=== PATIENT | female | born 1945 | race Caucasian/White ===

== ENCOUNTER 2018-04-02 15:45 | Inpatient (IN) | payer MEDICARE, BC ==
[~2018-04-02] VITALS: Ht 165.1 cm; Wt 123.8 kg
[2018-04-02 15:48] VITALS: BP 144/88
[2018-04-02] MEDS ORDERED: ADVAIR 500-501 EACH INH (16:00)
[2018-04-02] MEDS ORDERED: CYCLOBENZAPRINE5 MG PO (16:01)
[2018-04-02] MEDS ORDERED: DICLOFENAC SODI75 MG PO (16:01)
[2018-04-02] MEDS ORDERED: COMBIVENT INH (16:01)
[2018-04-02] MEDS ORDERED: CYMBALTA60 MG PO (16:02)
[2018-04-02] MEDS ORDERED: PRINIVIL10 MG PO (16:02)
[2018-04-02] MEDS ORDERED: IRON325 PO (16:02)
[2018-04-02] MEDS ORDERED: MAGOX 400400 MG PO (16:03)
[2018-04-02] MEDS ORDERED: TOPROL XL25 MG PO (16:03)
[2018-04-02] MEDS ORDERED: UNICOMPLEX M TA1 TA1 PO (16:03)
[2018-04-02] MEDS ORDERED: KLOR-CON 1010 MEQ PO (16:04)
[2018-04-02] MEDS ORDERED: OMEPRAZOLE40 MG PO (16:04)
[2018-04-02 16:05] LABS: ABSOLUTE BASOPHILS 0.1 thou/uL (0.0-0.2); ABSOLUTE EOSINOPHILS 0.5 thou/uL (0.0-0.7); ABSOLUTE LYMPHOCYTES 1.7 thou/uL (0.8-5.3); ABSOLUTE MONOCYTES 0.9 thou/uL (0.0-1.2); BASOPHILS 0.9 %; EOSINOPHILS 4.5 %; HEMATOCRIT 35.3 % (37.0-47.0); HEMOGLOBIN 11.5 gm/dL (12.0-15.0); MCH 28.6 pg (26.0-34.0); MCHC 32.6 g/dL (28.0-37.0); MCV 87.7 fL (80.0-100.0); MONOCYTES 8.1 %; MPV 9.7 fl. (7.2-11.1); NUCLEATED RBCS 0 /100WBC; PLATELET COUNT* 308 thou/uL (150-400); POLYS 71.5 %; RBC 4.02 mil/uL (4.20-5.00); RDW-CV 13.8 % (10.5-14.5); WBC 11.2 thou/uL (4.0-11.0)
[2018-04-02] MEDS ORDERED: VITAMIN D3400 UNIT PO (16:05)
[2018-04-02] MEDS ORDERED: B12INJ PO (16:05)
[2018-04-02 16:13] LABS: INR 1.1; PROTIME 10.3 Seconds (9.20-11.50)
[2018-04-02 16:14] LABS: ANION GAP 7 mmol/L (7-16); BUN 19 mg/dL (7-18); CALCIUM 8.8 mg/dL (8.5-10.1); CHLORIDE 105 mmol/L (98-107); CO2 28 mmol/L (21-32); CREATININE 0.9 mg/dL (0.6-1.3); GLUCOSE 95 mg/dL (70-99); POTASSIUM 4.3 mmol/L (3.5-5.1); SODIUM 140 mmol/L (136-145)
[2018-04-02 16:24] LABS: ALBUMIN 3.4 g/dL (3.4-5.0); ALKALINE PHOSPHATASE 50 U/L (46-116); LIPASE 130 U/L (73-393); MAGNESIUM 1.6 mg/dL (1.8-2.4); NT-PRO BRAIN NAT PEPTIDE 4224 pg/mL (<300); SGOT 12 U/L (15-37); SGPT 19 U/L (30-65); TOTAL BILIRUBIN 0.3 mg/dL (<0.1-1.0); TOTAL PROTEIN 7.9 g/dL (6.4-8.2); TROPONIN-I LEVEL <0.06 ng/mL (<0.06)
[2018-04-02 17:06] VITALS: BP 134/69
[2018-04-02 17:15] VITALS: BP 115/72
--- NOTE | 2018-04-02 18:43 | NUR ---
ASSUMED CARE OF PATIENT AT 1715 AFTER TRANSFER TO ROOM 202 FROM EMERGENCY DEPARTMENT. PATIENT AWAKE, ALERT, AND ORIENTED APPROPRIATELY. ADMISSION ASSESSMENT AND DOCUMENTATION COMPLETED AND CHARTED. VITAL SIGNS STABLE. OXYGEN SATURATION WITHIN NORMAL LIMITS ON 2 LPM PER NASAL CANULA. CARDIZEM DRIP INFUSING, TITRATED TO 20 MG/HR PER ORDER FROM DR. RENNER. PATIENT'S HEART RATE IN 120S AT THIS TIME. PATIENT IS UP WITH STANDBY ASSISTANCE. USES CALL LIGHT APPROPRIATELY. DENIES NEEDS AT THIS TIME. CALL LIGHT WITHIN REACH. NURSING WILL CONTINUE TO MONITOR.
[2018-04-02 20:00] VITALS: BP 154/80
[2018-04-03] VITALS (8 sets, daily range): BP systolic 122–182; BP diastolic 62–113
[2018-04-03 04:22] LABS: HEMOGLOBIN 11.2 gm/dL (12.0-15.0); MCH 28.2 pg (26.0-34.0); MCHC 32.1 g/dL (28.0-37.0); MCV 87.9 fL (80.0-100.0); MPV 10.4 fl. (7.2-11.1); NUCLEATED RBCS 0 /100WBC; PLATELET COUNT* 248 thou/uL (150-400); RBC 3.98 mil/uL (4.20-5.00); RDW-CV 13.7 % (10.5-14.5); WBC 11.5 thou/uL (4.0-11.0)
[2018-04-03 04:39] LABS: CALCIUM 9.1 mg/dL (8.5-10.1); CREATININE 0.8 mg/dL (0.6-1.3); POTASSIUM 4.9 mmol/L (3.5-5.1)
--- NOTE | 2018-04-03 04:58 | NUR ---
ASSUEMED CARE OF PT AFTER REPORT AT 1930. PT A&OX4. VSS. PHYSICAL ASSESSMENT COMPLETED AND CHARTED. PT ON RA WITH 96% O2 SAT. PT TRACING AFIB RVR ON TELE. STILL ON CARDIZEM DRIP AT 20 MG/HR. HR ON 110-120'S. PT UP STANDBY ASSIST. INSTRUCTED ON NPO POST MIDNIGHT FOR CARDIO CONSULT. PT RESTED WELL ON BED. HS REST & SAFETY GOALS ACHIEVED. DENIES ANY PAIN OR DISCOMFORT. CALL LIGHT WITHIN REACH.
[2018-04-03 05:44] LABS: ABSOLUTE LYMPHOCYTES 0.8 thou/uL (0.8-5.3); ABSOLUTE MONOCYTES 0.1 thou/uL (0.0-1.2); ABSOLUTE NEUTROPHILS 10.6 thou/uL (1.6-8.1); GIANT PLATELETS RARE; LARGE PLATELETS RARE; PLATELET ESTIMATE ADEQUATE
[2018-04-03 05:45] LABS: ANISOCYTOSIS 1+; POIKILOCYTOSIS 1+
--- NOTE | 2018-04-03 09:58 | NUR ---
ASSUMED CARE OF PATIENT AFTER REPORT THIS MORNING. PATIENT AWAKE, ALERT, AND ORIENTED APPROPRIATELY. PHYSICAL ASSESSMENT COMPLETED AND CHARTED. NO COMPLAINTS OF PAIN. VITAL SIGNS STABLE. OXYGEN SATURATION WITHIN NORMAL LIMITS ON 2 LPM PER NASAL CANULA. GIVEN SCHEDULED MEDICATIONS, SEE EMAR FOR DOCUMENTATION. PATIENT ASSISTED TO BATHROOM AND BECAME VERY SHORT OF BREATH WITHOUT OXYGEN. NEEDS OXYGEN SUPPLEMENTATION WHEN ACTIVE. PATIENT IS UP WITH STAND BY ASSISTANCE. IS STEADY ON HER FEET. CARDIZEM DRIP TRANSFUSING AT 20 MG/HR. HEART RATE 100-120. REMAINS IN AFIB. PATIENT DENIES NEEDS AT THIS TIME. CALL LIGHT WITHIN REACH. NURSING WILL CONTINUE TO MONITOR.
--- NOTE | 2018-04-03 15:02 | NUR ---
Pt is A&O. Resides at home with her dtr. Independent with ADLs, continues to work outside of the home. No DME. No hx of HH or SNF. Cardiology following. Goal is to return home at dc. Following.
--- NOTE | 2018-04-03 17:26 | NUR ---
NO CHANGE IN PATIENT STATUS. CARDIZEM DRIP REMAINS AT 20 MG/HR. STANDBY ASSIST TO THE BATHROOM. OXYGEN WITH ACTIVITY AND AT REST AT 2 LPM PER NASAL CANULA. DENIES NEEDS AT THIS TIME. FAMILY AT BEDSIDE. CALL LIGHT WITHIN REACH. NURSING WILL CONTINUE TO MONITOR.
--- NOTE | 2018-04-03 18:04 | NUR ---
PATIENT COMPLAINING OF SHORTNESS OF AIR, CHEST PRESSURE WITH DEEP BREATHS, AND BACK PACK. BLOOD PRESSURE TAKEN AND HYPERTENSIVE AT 145/113. BLOOD SUGAR SLIGHTLY ELEVATED AT 153. EKG OBTAINED AND IN PATIENT'S CHART. 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 NURSING WILL CONTINUE TO MONITOR.
--- NOTE | 2018-04-03 18:46 | NUR ---
PATIENT GIVEN NITRO AT 1810. STATED SHE WAS MORE COMFORTABLE AT 1825. RECEIVED ORDERS FROM DR. ROBISON VIA TELEPHONE FOR TROPONIN TO BE CHECKED AND TO START TORADOL, SEE EMAR. PATIENT REFUSED TORADOL AT THIS TIME SHE SAYS SHE IS FEELING BETTER. BLOOD PRESSURE RECHECKED AND WITHIN NORMAL LIMITS AT 136/62. NURSING WILL CONTINUE TO MONITOR.
--- NOTE | 2018-04-03 20:23 | 2DMMODE ---
[place] [address] 2 D/M-MODE ECHOCARDIOGRAM Name: SARMIENTODAVID Room: [address] IN [facility]#: [id number] Admission: 04/02/18 Attend Phys: Yohan Mujica, Discharge: Date of : 47 Date of Service: 04/03/182022 Report #: [id number] THIS REPORT FOR: //name// APPROVED REPORT Study performed: 04/03/2018 14:06:29 EXAM: Comprehensive 2D, Doppler, and color-flow Echocardiogram Patient Location: In-Patient Room #: 202 Status: routine BSA: 2.24 HR: 128 bpm BP: 127/63 mmHg Rhythm: NSR Other Information Study Quality: Good Indications Atrial Fibrillation 2D Dimensions LVEF(%): 74.76 (>50%) IVSd: 10.82 (7-11mm) LVOT Diam: 19.16 (18-24mm) LVDd: 52.08 mm PWd: 9.36 (7-11mm) Ascending Ao: 32.83 (22-36mm) LVDs: 29.22 (25-40mm) Aortic Root: 33.99 mm Scott's LVEF: 74.76 % Volumes Left Atrial Volume (Systole) LA ESV Index: 38.10 mL/m2 Aortic Valve AoV Peak Triston.: 1.71 m/s AO Peak Gr.: 11.64 mmHg LVOT Max P.46 mmHg AO Mean Gr.: 6.10 mmHg LVOT Mean P.42 mmHg LVOT Max V: 1.45 m/s AO V2 VTI: 27.43 cm LVOT Mean V: 0.97 m/s GAURANG (VTI): 2.69 cm2 LVOT V1 VTI: 25.54 cm Mitral Valve MV Decel. Time: 140.89 [place] [address] 2 D/M-MODE ECHOCARDIOGRAM Name: TORSTENDAVID Marley Room: [address] IN [facility]#: [id number] Admission: 04/02/18 Attend Phys: Yohan Mujica, Discharge: Date of : 47 Date of Service: 04/03/182022 Report #: [id number] MV PHT: 40.86 ms MVA (PHT): 5.38 cm2 TDI Medial E' Triston.: 0.12 m/s Pulmonary Valve PV Peak Triston.: 1.48 m/s PV Peak Gr.: 8.75 mmHg Tricuspid Valve RAP Estimate: 15.00 mmHg TR Peak Gr.: 32.35 mmHg RVSP: 47.35 mmHg PA Pressure: 47.35 mmHg Left Ventricle The left ventricle is normal size. There is normal LV segmental wall motion. There is normal left ventricular wall thickness. Left ventricular systolic function is normal. LVEF is 55-60%. This study is not technically sufficient to allow evaluation of the LV diastolic function due to atrial fibrillation. Right Ventricle Right ventricle is mildly dilated. The right ventricular systolic function is normal. Atria Left atrium is mildly dilated. Right atrium is mildly dilated. Aortic Valve The aortic valve is normal in structure. No aortic regurgitation is present. There is no aortic valvular stenosis. Mitral Valve There is mitral annular calcification. Mild mitral regurgitation. No evidence of mitral valve stenosis. Tricuspid Valve The tricuspid valve is normal in structure. Mild tricuspid regurgitation. Moderate pulmonary hypertension. Pulmonic Valve The pulmonary valve is normal in structure. There is no pulmonic valvular regurgitation. [place] [address] 2 D/M-MODE ECHOCARDIOGRAM Name: SARMIENTODAVID Room: [address] IN [facility]#: [id number] Admission: 04/02/18 Attend Phys: Yohan Mujica, Discharge: Date of : 47 Date of Service: 04/03/182022 Report #: [id number] The aortic root is normal in size. IVC is dilated and collapses <50% with inspiration. Pericardium There is no pericardial effusion. <Conclusion> The left ventricle is normal size. There is normal left ventricular wall thickness. Left ventricular systolic function is normal. LVEF is 55-60%. This study is not technically sufficient to allow evaluation of the LV diastolic function due to atrial fibrillation. Right ventricle is mildly dilated. Left atrium is mildly dilated. Right atrium is mildly dilated. Mild mitral regurgitation. Mild tricuspid regurgitation. Moderate pulmonary hypertension. IVC is dilated and collapses <50% with inspiration. <ELECTRONICALLY SIGNED> By: Cuauhtemoc Galloway MD, FACC 04/03/182022 22 22 Cuauhtemoc Galloway MD, FACC /INF
[2018-04-04] VITALS (10 sets, daily range): BP systolic 124–169; BP diastolic 56–91
--- NOTE | 2018-04-04 04:47 | NUR ---
ASSUMED CARE OF PT AFTER REPORT AT 1930. PT A&OX4. VSS. PHYSICAL ASSESSMENT COMPLETED AND CHARTED. PT ON O2 VIA NC AT 3 LPM WITH 92% O2 SAT. PT WEARS CPAP WHILE SLEEPING. PT TRACING AFIB BBB ON TELE.PT ON CARDIZEM DRIP AT 20 MG/HR. PT HR 70'S-100'S. PT CARDIZEM DRIP TITRATED ACCORDINGLY. PT UP WITH STANDBY ASSIST. ON MAGNESIUM ELECTROLYTE PROTOCOL. GIVEN MEDS PER NOV.PT RESTED WELL ON BED. HS REST & SAFETY GOALS ACHIEVED. DENIES ANY PAIN OR DISCOMFORT AT THIS TIME. CALL LIGHT WITHIN REACH.
[2018-04-04 05:15] LABS: ABSOLUTE LYMPHOCYTES 0.6 thou/uL (0.8-5.3); ABSOLUTE MONOCYTES 0.4 thou/uL (0.0-1.2); ABSOLUTE NEUTROPHILS 11.9 thou/uL (1.6-8.1); HEMATOCRIT 32.6 % (37.0-47.0); HEMOGLOBIN 10.7 gm/dL (12.0-15.0); LYMPHOCYTES 4.7 %; MCHC 32.9 g/dL (28.0-37.0); MCV 88.1 fL (80.0-100.0); MONOCYTES 3.4 %; MPV 10.2 fl. (7.2-11.1); NUCLEATED RBCS 0 /100WBC; PLATELET COUNT* 272 thou/uL (150-400); POLYS 91.9 %; RDW-CV 13.9 % (10.5-14.5)
[2018-04-04 05:37] LABS: ALBUMIN 3.1 g/dL (3.4-5.0); CALCIUM 9.3 mg/dL (8.5-10.1); CREATININE 0.9 mg/dL (0.6-1.3); POTASSIUM 5.1 mmol/L (3.5-5.1); TOTAL BILIRUBIN 0.3 mg/dL (<0.1-1.0); TOTAL PROTEIN 7.5 g/dL (6.4-8.2)
--- NOTE | 2018-04-04 12:06 | NUR ---
RECEIVED REPORT FROM CIARA AND ASSUMED CARE OF PT @ 3605.PT IS A/O,VSS,TRACING AFIB WITH BBB ON THE MONITOR.LUNG SOUNDS ARE COARSE.LAST BM WAS TODAY.IV LEFT AC PATENT WITH CARDIZM DRIP RUNNING @ 10.PT IS CALM AND COOPERATIVE WITH NO C/O PAIN AT TIME OF ASSESSMENT.PT IS UP WITH SBA TO BATHROOM.CALL LIGHT AND FALL PRECAUTIONS IN PLACE.FAMILY AT BEDSIDE.WILL CONTINUE TO MONITOR.
--- NOTE | 2018-04-04 13:08 | CON ---
[address] [address] CONSULTATION Name: SARMIENTODAVID Room: [address] IN M.R.#: [id number] Admission: 04/02/18 Attend Phys: Yohan Mujica MD Discharge: Date of : 47 Report #: [id number] THIS REPORT FOR: //name// CC: Yohan Montiel MD INDICATION: New onset atrial fibrillation with rapid ventricular response. HISTORY OF PRESENT ILLNESS: The patient is a very pleasant 72-year-old white female with chronic obstructive pulmonary disease. She has a remote history of PSVT without significant recurrence recently. She was seen at her primary physician's office with complaints of increasing dyspnea on exertion, cough and shortness of breath. She was found to be in atrial fibrillation with a rapid ventricular response rate and transferred to the hospital. She has been placed on a diltiazem drip with fair control of her AFib rate. She denies any prior history of atrial fibrillation. There is no history of coronary artery disease. She is not having any significant palpitations despite her atrial fibrillation. She denies chest pain. She has shortness of breath and dyspnea. PAST MEDICAL HISTORY: 1. COPD 2. Hypertension. 3. Bilateral breast cancer, status post mastectomies in 2007 and 2014. 4. Tubal ligation. FAMILY HISTORY: Noncontributory. SOCIAL HISTORY: The patient quit smoking in 1996. She drinks alcohol rarely. ALLERGIES: CIPROFLOXACIN, IODINE, PENICILLINS AND SULFA. HOME MEDICATIONS: Voltaren 75 mg b.i.d., Cymbalta 60 mg daily, iron sulfate 325 mg daily, lisinopril 10 mg daily, magnesium oxide tablet daily, metoprolol succinate 25 mg daily, multivitamin 1 tablet daily, potassium chloride 10 mEq daily, vitamin B12 1000 mcg daily, vitamin D supplement daily. PHYSICAL EXAMINATION: VITAL SIGNS: Stable. Blood pressure 127/63, pulse is irregular and in the 110s. GENERAL: This is a moderately obese, pleasant white female in no distress. Mood and affect appropriate. HEENT: Extraocular muscles intact. Mucous membranes are moist. NECK: Shows no jugular venous distention. There are no carotid bruits. CHEST: Reveals expiratory wheezes. Breath sounds are diminished throughout. I do not appreciate rales. CARDIOVASCULAR: Reveals an irregularly irregular [place] [address] CONSULTATION Name: DAVID SARMIENTO Ayaka Room: [address] IN [facility]#: [id number] Admission: 04/02/18 Attend Phys: Yohan Mujica MD Discharge: Date of : 47 Report #: [id number] without obvious gallop or murmur. ABDOMEN: Reveals normal bowel sounds. The abdomen is soft, nontender. EXTREMITIES: Shows no edema. SKIN: Warm and dry. A 12-lead EKG shows atrial fibrillation with right bundle branch block and rapid ventricular response rate. LABORATORY DATA: Reviewed. Troponin less than 0.06. IMPRESSION AND RECOMMENDATIONS: 1. New onset atrial fibrillation with rapid ventricular response. We will start anticoagulant with Eliquis. We will obtain echocardiogram. We will place on sotalol in an attempt to convert to sinus rhythm. Hold metoprolol. 2. Hypertension. Blood pressure adequately controlled presently. We will follow and make adjustments as needed. 3. Chronic obstructive pulmonary disease per primary physician. <ELECTRONICALLY SIGNED> By: Cuauhtemoc Galloway MD, FACC 04/04/18 1308 1333 1620[facility] Galloway MD, FACC /nt
--- NOTE | 2018-04-04 13:29 | EKG ---
[place] [address] ELECTROCARDIOGRAM REPORT Name: SARMIENTODAVID Room: [address] IN .R.#: [id number] Admission: 04/02/18 Attend Phys: Yohan Mujica MD Discharge: Date of : 47 Report #: [id number] THIS REPORT FOR: //name// [facility] ED Test Date: 2018-04-02 Test Time: 15:51:19 Pat Name: DAVID SARMIENTO Department: Room: Gender: International Student Advisor: Kika BARRETO : 1945 Requested By: Zachary La Order Number: [id number] MD: Cuauhtemoc Galloway Measurements Intervals [place] Rate: 156 P: [place]: QRS: -59 QRSD: 144 T: -8 QT: 313 QTc: 504 Interpretive Statements Atrial fibrillation with rapid ventricular response Right bundle-branch block No previous ECG available for comparison Electronically Signed On 04-04-2018 13:29:09 CDT by Cuauhtemoc Galloway [email or web address] <ELECTRONICALLY SIGNED> By: Cuauhtemoc Galloway MD, [facility] 04/04/18 1329 1551 1551 Cuauhtemoc Galloway MD, FACC /EPI
--- NOTE | 2018-04-04 13:37 | EKG ---
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: : 1945 Requested By: Yohan Mujica Order Number: [id number] Ambrocio MD: Cuauhtemoc Galloway Measurements Intervals [place] Rate: 97 P: [place]: QRS: -37 QRSD: 154 T: -28 QT: 425 QTc: 540 Interpretive Statements Atrial fibrillation Right bundle branch block Left ventricular hypertrophy, bivoltage No previous ECG available for comparison Electronically Signed On 04-04-2018 13:37:18 CDT by Cuauhtemoc Galloway [email or web address] <ELECTRONICALLY SIGNED> By: Cuauhtemoc Galloway MD, [facility] 04/04/18 1337 1759 1759 Cuauhtemoc Galloway MD, FACC /EPI
--- NOTE | 2018-04-04 19:56 | NUR ---
VSS,INSPECTOR BALANCE BRIDGE IN PLACE WITH NO CHANGES THIS SHIFT.PT REMAINS ON 3L O2 NC.NO C/O PAIN THIS SHIFT.IV PATENT WITH Lono RUNNING @ 10.PT TO BE NPO AT MIDNIGHT FOR IVANIA IN AM.PT INFORMED OF PLAN OF CARE AND COMMUNICATES UNDERSTANDING.PT WAS UP WITH SBA TO BATHROOM MULTIPLE TIMES.HOURLY ROUNDING COMPLETED.CALL LIGHT AND FALL PRECAUTIONS IN PLACE. WILL CONTINUE TO MONITOR.
[2018-04-05] VITALS (16 sets, daily range): BP systolic 123–181; BP diastolic 43–93
--- NOTE | 2018-04-05 02:47 | NUR ---
PATIENT RESTED IN BED, NO ACUTE CHANGES. PATIENT DID NOT SHOW SIGNS OF DISTRESS. FALL PRECAUTIONS IN PLACE, CALL LIGHT WITH IN REACH, HOURLY ROUNDING OBSERVED. PATIENT HEART RATE WAS CONTROLED.
--- NOTE | 2018-04-05 02:59 | NUR ---
PATIENT IS NPO FOR TESTING.
--- NOTE | 2018-04-05 08:49 | NUR ---
RECEIVED REPORT. ASSUMED CARE OF PT AT 0730. VSS. CARDIAC MONITORING IN PLACE AFIB WITH BBB. AM ASSESSMENT AND VITALS COMPELTED CHARTED. PT ALERT AND ORIETNED. PT ON 3L PER NC. IV CARDIZEM GTT TIRATED OFF THIS AM. PT NPO PENDING IVANIA/CARDIOVERSION THIS AM. CONSENT FORM SIGNED. PT DENIES ANY COMPLAITNS OF PAIN OR DISCOMFORT. PT IS UP AD SHADIA IN ROOM. PT INFORMED OF PLAN OF CARE. CALL LIGHT IS WITHIN REACH. WILL CONTINUE TO MONTIOR FOR DURATION OF SHIFT.
[2018-04-05 11:13] LABS: HEMOGLOBIN 11.4 gm/dL (12.0-15.0); MCH 28.6 pg (26.0-34.0); MCHC 32.5 g/dL (28.0-37.0); MPV 9.6 fl. (7.2-11.1); NUCLEATED RBCS 0 /100WBC; PLATELET COUNT* 298 thou/uL (150-400); RBC 3.98 mil/uL (4.20-5.00)
[2018-04-05 11:44] LABS: ALBUMIN 3.1 g/dL (3.4-5.0); CALCIUM 9.2 mg/dL (8.5-10.1); POTASSIUM 4.1 mmol/L (3.5-5.1); TOTAL BILIRUBIN 0.4 mg/dL (<0.1-1.0); TOTAL PROTEIN 7.4 g/dL (6.4-8.2)
[2018-04-05 11:47] LABS: ABSOLUTE EOSINOPHILS 0.1 thou/uL (0.0-0.7); ABSOLUTE LYMPHOCYTES 1.3 thou/uL (0.8-5.3); ABSOLUTE MONOCYTES 0.8 thou/uL (0.0-1.2); ABSOLUTE NEUTROPHILS 9.7 thou/uL (1.6-8.1); ANISOCYTOSIS 1+; PLATELET ESTIMATE ADEQUATE; POIKILOCYTOSIS 1+
--- NOTE | 2018-04-05 12:58 | NUR ---
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 PT HAD IVANIA/CAARDIOVERSION PT SR WITH HR IN THE 90'S. WILL CONTINUE TO MONTIOR.
--- NOTE | 2018-04-05 14:40 | NUR ---
Nutrition: Pt seen for high BMI. Pt admitted for afib w/ RVR. Pt busy w/ RN at two different attempts to visit today. Labs: BNP 2691 and trending down, albumin 3.1, BG ok. NPO currently. Was in laboratory monitor earlier today. Wt: 268#. No nutrition interventions today. Will follow for diet advancement (goal Heart Healthy), wt, labs.
--- NOTE | 2018-04-05 15:21 | EKG ---
[place] [address] ELECTROCARDIOGRAM REPORT Name: DAVID SARMIENTO Room: [address] ADM IN M.R.#: [id number] Admission: 04/02/18 Attend Phys: Yohan Mujica MD Discharge: Date of : 47 Report #: [id number] THIS REPORT FOR: //name// [facility] Test Date: 2018-04-05 Test Time: 08:18:08 Pat Name: DAVID SARMIENTO Department: Room: [address] Gender: F Chief Load Dispatcher: : 1945 Requested By: Cuauhtemoc Galloway Order Number: [id number] Reading MD: Sujit Mota Measurements Intervals [place] Rate: 90 P: [place]: QRS: -36 QRSD: 156 T: 3 QT: 405 QTc: 496 Interpretive Statements Atrial fibrillation Right bundle branch block Compared to ECG 04/03/2018 17:59:22 Left ventricular hypertrophy no longer present Electronically Signed On 04-05-2018 15:21:38 CDT by Sujit Mota [email or web address] <ELECTRONICALLY SIGNED> By: Sujit Mota MD, [facility] 04/05/18 1521 7 7 Sujit Mota MD, [facility] /EPI
--- NOTE | 2018-04-05 15:24 | EKG ---
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1945 Requested By: Cuauhtemoc Galloway Order Number: [id number] Reading MD: Sujit Mota Measurements Intervals [place] Rate: 85 P: 58 NC: 190 QRS: -43 QRSD: 159 T: 0 QT: 437 QTc: 520 Interpretive Statements Sinus rhythm Probable left atrial enlargement RBBB and LAFB Left ventricular hypertrophy Baseline wander in lead(s) V5 Compared to ECG 04/03/2018 17:59:22 Left anterior fascicular block now present Atrial fibrillation no longer present Electronically Signed On 04-05-2018 15:23:51 CDT by Sujit Mota [email or web address] <ELECTRONICALLY SIGNED> By: Sujit Mota MD, [facility] 04/05/18 1523 1228 1228 Sujit Mota MD, [facility] /EPI
--- NOTE | 2018-04-05 17:02 | NUR ---
VSS. CARDIAC MONITORING IN PLACE NOW SR. PT SOMEWHAT PROGRESSING TOWARDS GOALS. PT HAD SUCCESSFUL CARDIOVERSION THIS AFTERNOON. HOWEVER THIS AM PT DID HAVE SOME SOA-ONETIME DOSE OF LASIX GIVEN WITH RELIEF. IV SALINE LOCKED. PT HAD SOME BURNING/ITCHING POST CARDIOVERSION NO RASH NOTED. TYLENOL GIVEN WITH RELIEF. PT IS UP WITH STAND BY ASSISTANCE TO BATHROOM. PT INFORMED OF PLAN OF CARE. CALL LIGHT IS WITHIN REACH. WILL CONTINUE TO MONITOR FOR DURATON OF SHFIT.
--- NOTE | 2018-04-05 17:44 | TEE ---
[place] [address] TRANSESOPHAGEAL ECHOCARDIOGRAM Name: JESS SARMIENTOGisele Marley Room: [address] IN [facility]#: [id number] Admission: 04/02/18 Attend Phys: Yohan Mujica, Discharge: Date of : 47 Date of Service: 04/05/18 1744 Report #: [id number] THIS REPORT FOR: //name// APPROVED REPORT Study performed: 04/05/2018 11:41:26 EXAM: Transesophageal Echocardiogram Patient Location: In-Patient Room #: [facility] Status: routine BSA: 2.24 HR: 120 bpm BP: 153/85 mmHg Rhythm: Atrial Fibrillation Other Information Study Quality: Good Indications Atrial Fibrillation Echo Enhancing Agent Indication: Rule out Shunt Agent(s) / Amount(s) Used: Agitated Saline 10 cc Procedure After obtaining informed consent, patient underwent transesophageal echo in the [employer]. Type of Sedation : Conscious Sedation Sedation was administered by Julia Garcia RN. Sedation start time: 1150 Case end Time: 1203 Sedation was achieved intravenously with: Versed (2) Fentanyl (50) Transesophageal probe was inserted and advanced into esophagus without difficulty by Cuauhtemoc Galloway MD, FACC. Echo enhancement indication: R/O Septal defect. Echo enhancement agent administered: Agitated Saline The IVANIA was performed without complications. Synchronized Cardioversion acheived with 360 Joules after 1 attempt(s). Rhythm following Synchronized Cardioversion: Normal Sinus Rhythm Throughout the procedure, the blood pressure, pulse oximetry, cardiac rhythm, and rate were monitored. The patient tolerated the procedure without adverse effects. Recovery [address] [address] TRANSESOPHAGEAL ECHOCARDIOGRAM Name: DAVID SARMIENTO Room: [address] IN [facility]#: [id number] Admission: 04/02/18 Attend Phys: Yohan Mujica, Discharge: Date of : 47 Date of Service: 04/05/18 1744 Report #: [id number] from conscious sedation was uneventful and vital signs were stable. Left Ventricle The left ventricle is normal size. There is normal LV segmental wall motion. There is normal left ventricular wall thickness. Left ventricular systolic function is normal. LVEF is 55-60%. Right Ventricle Right ventricle is mildly dilated. The right ventricular systolic function is normal. Atria Left atrium is mildly dilated. No thrombus is visualized in the left atrium or appendage. Interatrial septum is intact without evidence of ASD or PFO. Right atrium is mildly dilated. Aortic Valve The aortic valve is normal in structure. Trace to mild aortic regurgitation. There is no aortic valvular stenosis. Mitral Valve The mitral valve is normal in structure. Mild mitral regurgitation. No evidence of mitral valve stenosis. Tricuspid Valve The tricuspid valve is normal in structure. Trace tricuspid regurgitation. Pulmonic Valve The pulmonary valve is normal in structure. There is no pulmonic valvular regurgitation. Great Vessels The aortic root is normal in size. Pericardium There is no pericardial effusion. <Conclusion> The left ventricle is normal size. There is normal left ventricular wall thickness. Left ventricular systolic function is normal. LVEF is 55-60%. Interatrial septum is intact without evidence of ASD or PFO. Left [place] [address] TRANSESOPHAGEAL ECHOCARDIOGRAM Name: DAVID SARMIENTO Room: [address] IN .R.#: [id number] Admission: 04/02/18 Attend Phys: Yohan Mujica, Discharge: Date of : 47 Date of Service: 04/05/181743 Report #: [id number] No thrombus is visualized in the left atrium or appendage. Trace to mild aortic regurgitation. Mild mitral regurgitation. Trace tricuspid regurgitation. <ELECTRONICALLY SIGNED> By: Cuauhtemoc Galloway MD, FACC 04/05/181743 43 43 Cuauhtemoc Galloway MD, FACC /INF
[2018-04-06] VITALS: BP 153/79
[2018-04-06 04:00] VITALS: BP 149/82
[2018-04-06 04:20] LABS: ABSOLUTE LYMPHOCYTES 0.9 thou/uL (0.8-5.3); ABSOLUTE MONOCYTES 1.1 thou/uL (0.0-1.2); ABSOLUTE NEUTROPHILS 7.5 thou/uL (1.6-8.1); BASOPHILS 0.3 %; EOSINOPHILS 0.3 %; HEMATOCRIT 36.4 % (37.0-47.0); HEMOGLOBIN 11.8 gm/dL (12.0-15.0); LYMPHOCYTES 9.7 %; MCH 28.2 pg (26.0-34.0); MCHC 32.4 g/dL (28.0-37.0); MCV 87.1 fL (80.0-100.0); MONOCYTES 11.5 %; MPV 9.6 fl. (7.2-11.1); NUCLEATED RBCS 0 /100WBC; PLATELET COUNT* 278 thou/uL (150-400); POLYS 78.2 %; RBC 4.17 mil/uL (4.20-5.00); RDW-CV 13.6 % (10.5-14.5); WBC 9.6 thou/uL (4.0-11.0)
--- NOTE | 2018-04-06 04:28 | NUR ---
PATIENT BEGAN TO SHOW A FLUTTER, CARDIOLOGY NOTIFIED, SEE ORDERS. PATIENT IS NO LONGER IN A FLUTTER. PATIENT IS NOT SHOWING SIGNS OF DISTRESS. PATIENT DID NOT SHOW SIGNS OF SOB. FALL PRECAUTIONS IN PLACE, CALL LIGHT WITH IN REACH, HOURLY ROUNDING OBSERVED.
[2018-04-06 04:42] LABS: CALCIUM 8.9 mg/dL (8.5-10.1); CREATININE 0.8 mg/dL (0.6-1.3); POTASSIUM 4.2 mmol/L (3.5-5.1); TOTAL BILIRUBIN 0.4 mg/dL (<0.1-1.0)
[2018-04-06 08:00] VITALS: BP 188/83
--- NOTE | 2018-04-06 08:00 | NUR ---
RECEIVED REPORT FROM BEHZAD AND ASSUMED CARE OF PT @ 5204.PT IS A/O,BP ELEVATED @ 188/83 MEDICATIONS GIVEN.TRACING AFIB/FLUTTER ON THE MONITOR.LUNG SOUNDS ARE COARSE.LAST BM WAS YESTERDAY.IV RIGHT HAND PATENT WITH CARDIZM RUNNING @ 10.PT IS CALM AND COOPERATIVE WITH NO C/O PAIN AT TIME OF ASSESSMENT.PT IS UP SBA TO BATHROOM.PT LEFT RESTING IN BED WITH CALL LIGHT AND FALL PRECAUTIONS IN PLACE.WILL CONTINUE TO MONITOR.
[2018-04-06 11:25] VITALS: BP 131/72
[2018-04-06 15:39] VITALS: BP 149/73
--- NOTE | 2018-04-06 16:30 | EKG ---
[place] [address] ELECTROCARDIOGRAM REPORT Name: SARMIENTODAVID Room: [address] ADM IN M.R.#: [id number] Admission: 04/02/18 Attend Phys: Yohan Mujica MD Discharge: Date of : 47 Report #: [id number] THIS REPORT FOR: //name// [facility] Test Date: 2018-04-05 Test Time: 21:18:49 Pat Name: DAVID SARMIENTO Department: Room: [address] Gender: F Log Scaler: AB : 1945 Requested By: Yohan Mujica Order Number: [id number] Reading MD: Cuauhtemoc Galloway Measurements Intervals [place] Rate: 110 P: [place]: QRS: -42 QRSD: 148 T: -5 QT: 378 QTc: 512 Interpretive Statements Atrial fibrillation RBBB and LAFB Probable LVH with secondary repol abnrm Compared to ECG 04/05/2018 12:28:17 Sinus rhythm no longer present Electronically Signed On 04-06-2018 16:30:06 CDT by Cuauhtemoc Galloway [email or web address] <ELECTRONICALLY SIGNED> By: Cuauhtemoc Galloway MD, FACC 04/06/18 1630 17 17 Cuauhtemoc Galloway MD, FAC /EPI
--- NOTE | 2018-04-06 16:32 | EKG ---
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1945 Requested By: Cuauhtemoc Galloway Order Number: [id number] Reading MD: Cuauhtemoc Galloway Measurements Intervals [place] Rate: 84 P: 44 [place]: 187 QRS: -47 QRSD: 157 T: 2 QT: 422 QTc: 499 Interpretive Statements Sinus rhythm Probable left atrial enlargement RBBB and LAFB Left ventricular hypertrophy, bivoltage Compared to ECG 04/05/2018 12:28:17 No significant changes Electronically Signed On 04-06-2018 16:31:53 CDT by Cuauhtemoc Galloway [email or web address] <ELECTRONICALLY SIGNED> By: Cuauhtemoc Galloway MD, FACC 04/06/18 1631 0834 0834 Cuauhtemoc Galloway MD, [facility] /EPI
--- NOTE | 2018-04-06 17:14 | NUR ---
VSS,CARDIAC MONITORING IN PLACE WITH NO CHANGES.PT REMAINS ON 3L O2 NC.NO C/O PAIN.IV CARDIZM RUNNING AT 10.PT HAS BEEN UP TO BATHROOM WITH SBA SEVERAL TIMES.HOURLY ROUNDING COMPLETED FOR PT SAFETY.CALL LIGHT AND FALL PRECAUTIONS IN PLACE.FAMILY AT BEDSIDE.WILL CONTINUE TO MONITOR FOR DURATION OF SHIFT.
[2018-04-06 20:00] VITALS: BP 172/84
[2018-04-07] VITALS: BP 112/76
[2018-04-07 04:00] VITALS: BP 155/84
[2018-04-07 04:43] LABS: ABSOLUTE EOSINOPHILS 0.1 thou/uL (0.0-0.7); ABSOLUTE LYMPHOCYTES 1.3 thou/uL (0.8-5.3); ABSOLUTE MONOCYTES 1.2 thou/uL (0.0-1.2); ABSOLUTE NEUTROPHILS 8.5 thou/uL (1.6-8.1); BASOPHILS 0.2 %; EOSINOPHILS 0.5 %; HEMATOCRIT 36.7 % (37.0-47.0); LYMPHOCYTES 11.6 %; MCH 28.5 pg (26.0-34.0); MCHC 32.7 g/dL (28.0-37.0); MCV 87.2 fL (80.0-100.0); MONOCYTES 10.7 %; MPV 9.5 fl. (7.2-11.1); NUCLEATED RBCS 0 /100WBC; PLATELET COUNT* 294 thou/uL (150-400); RBC 4.21 mil/uL (4.20-5.00)
[2018-04-07 05:15] LABS: ALBUMIN 2.9 g/dL (3.4-5.0); CALCIUM 9.1 mg/dL (8.5-10.1); CREATININE 0.9 mg/dL (0.6-1.3); POTASSIUM 3.7 mmol/L (3.5-5.1); TOTAL BILIRUBIN 0.4 mg/dL (<0.1-1.0); TOTAL PROTEIN 7.3 g/dL (6.4-8.2)
--- NOTE | 2018-04-07 05:24 | NUR ---
ASSUMED PT CARE AT 1930, PT IS A&OX4, TRACING AFIB ON THE MONITOR, PT HAS A CARDIZEM GTT INFUSING AT 10ML/HR. PT IS ON 3L NC SATTING MID TO HIGH 90S. PT WEARS HER HOME CPAP AT [facility]. PT DENIES ANY PAIN OR NEEDS AT THIS TIME. BED IN LOW POSITION, CALL LIGHT IN REACH, BED ALARM ON, YELLOW ARM BAND AND SOCKS IN PLACE. HOURLY ROUNDING COMPLETED FOR PT SAFETY.
[2018-04-07 08:00] VITALS: BP 155/83
[2018-04-07 12:00] VITALS: BP 147/75
--- NOTE | 2018-04-07 12:45 | NUR ---
RECEIVED REPORT FROM ART GÓMEZ. ASSUMED CARE OF PT AROUND 1030. PT A&OX4, VSS, O2 SAT >90%, NOW ON RA, TITRATED OFF O2. PT STATES SHE ONLY USES OXYGEN AT NIGHT WITH HER CPAP. THIS RN AGREES WITH VITALS AND ASSESSMENT CHARTING OF ART GÓMEZ. CELLAR SUPERVISOR IN PLACE TRACING SR WITH BBB. CARDIZEM GTT STOPPED. IV TO RIGHT HAND INTACT. PT EATING AND DRINKING WITHOUT ISSUE. PT STEADY ON FEET, LOW FALL RISK, ABLE TO BE UP AD SHADIA TO THE BATHROOM. PT VOIDING WITHOUT ISSUE. PT LOOKING FORWARD TO GOING HOME TODAY. PT CURRENTLY EATING LUNCH IN ROOM. LOW FALL RISK PRECAUTIONS IN PLACE. CALL LIGHT IS WITHIN REACH, HOURLY ROUNDING PERFORMED. WCTM.
[2018-04-07] MEDS ORDERED: ELIQUIS5 M1 PO (13:26)
[2018-04-07] MEDS ORDERED: SORINE 80 MG TA80 M1 PO (13:27)
[2018-04-07] MEDS ORDERED: PREDNISONE 10 M10 M1 PO (13:33)
[2018-04-07] MEDS ORDERED: DOXYCYCLINE 10100 M1 PO (13:34)
[2018-04-07] MEDS ORDERED: PROTONIX40 M1 PO (13:35)
--- NOTE | 2018-04-07 14:32 | NUR ---
DISCHARGE ORDERS RECEIVED. DISCHARGE COMPLETED DOCUMENTED. DISCHARGE SUMMARY AND CARE NOTES GONE OVER WITH THE PT AND DAUGHTER - BOTH COMMUNICATE UNDERSTANDING. SCRIPTS GIVEN. CARE NOTES GIVEN. APPOINTMENT CARD GIVEN. IV AND QUALITY ASSURANCE SUPERVISOR BODY REMOVED. ALL BELONGINGS GATHERED AND SENT WITH THE PT. FACE SHEET AND FAX COVER SENT TO CARDIOLOGY WITH INSTRUCTION TO SCHEDULE PT'S 6 DAY HOSPITAL FOLLOW UP FOR CHF GUIDELINES. PT AWARE OF ALL FOLLOW UP APPOINTMENTS. VSS AT TIME OF DC. PT LEFT UNIT IN WC WITH NURSING STAFF. PT LEFT HOSPITAL IN CAR WITH DAUGHTER.
== END 2018-04-07 14:25 | disposition home or self-care (01) | DRG 177 ==
LOC: M.ERS 15:45 → M.TBA-ER 16:22 → M.2W 16:22
PROVIDERS: Emergency Medicine; ADMIT Internal Medicine
DX: J15.6 Pneumonia due to other Gram-negative bacteria (principal); I50.31 Acute diastolic (congestive) heart failure; J96.20 Acute and chronic respiratory failure, unspecified whether with hypoxia or hypercapnia; J44.1 Chronic obstructive pulmonary disease with (acute) exacerbation; J44.0 Chronic obstructive pulmonary disease with (acute) lower respiratory infection; R65.10 Systemic inflammatory response syndrome (SIRS) of non-infectious origin without acute organ dysfunction; J18.9 Pneumonia, unspecified organism; I48.91 Unspecified atrial fibrillation; I11.0 Hypertensive heart disease with heart failure; G47.33 Obstructive sleep apnea (adult) (pediatric); Z88.0 Allergy status to penicillin; Z88.2 Allergy status to sulfonamides; Z79.01 Long term (current) use of anticoagulants; Z88.1 Allergy status to other antibiotic agents; Z91.041 Radiographic dye allergy status; Z90.13 Acquired absence of bilateral breasts and nipples; Z85.3 Personal history of malignant neoplasm of breast; Z87.891 Personal history of nicotine dependence; Z79.899 Other long term (current) drug therapy

== ENCOUNTER 2018-04-13 15:53 | Inpatient (IN) | payer MEDICARE, BC ==
[~2018-04-13] VITALS: Ht 165.1 cm; Wt 117.5 kg
[~2018-04-13 15:53] MED LIST: ADVAIR 500-501 EACH INH; B12INJ PO; COMBIVENT INH; CYCLOBENZAPRINE5 MG PO; CYMBALTA60 MG PO; DICLOFENAC SODI75 MG PO; DOXYCYCLINE 10100 M1 PO; ELIQUIS5 M1 PO; IRON325 PO; KLOR-CON 1010 MEQ PO; MAGOX 400400 MG PO; OMEPRAZOLE40 MG PO; PREDNISONE 10 M10 M1 PO; PRINIVIL10 MG PO; PROTONIX40 M1 PO; SORINE 80 MG TA80 M1 PO; TOPROL XL25 MG PO; UNICOMPLEX M TA1 TA1 PO; VITAMIN D3400 UNIT PO
[2018-04-13 15:58] VITALS: BP 163/59
[2018-04-13] MEDS ORDERED: ADVAIR HFA 230M12 GM INH (16:03)
[2018-04-13 16:30] LABS: HEMATOCRIT 37.5 % (37.0-47.0); HEMOGLOBIN 12.4 gm/dL (12.0-15.0); MCH 28.4 pg (26.0-34.0); MCHC 32.9 g/dL (28.0-37.0); MCV 86.2 fL (80.0-100.0); MPV 9.6 fl. (7.2-11.1); NUCLEATED RBCS 0 /100WBC; PLATELET COUNT* 371 thou/uL (150-400); RBC 4.35 mil/uL (4.20-5.00); RDW-CV 13.6 % (10.5-14.5)
[2018-04-13 16:34] LABS: INR 1.2; PROTIME 11.4 Seconds (9.20-11.50)
[2018-04-13 17:09] LABS: ANION GAP 9 mmol/L (7-16); BUN 20 mg/dL (7-18); CALCIUM 9.2 mg/dL (8.5-10.1); CHLORIDE 99 mmol/L (98-107); CO2 26 mmol/L (21-32); GLUCOSE 134 mg/dL (70-99); POTASSIUM 4.7 mmol/L (3.5-5.1); SODIUM 134 mmol/L (136-145)
[2018-04-13 17:19] LABS: ALBUMIN 2.8 g/dL (3.4-5.0); ALKALINE PHOSPHATASE 54 U/L (46-116); NT-PRO BRAIN NAT PEPTIDE 601 pg/mL (<300); SGOT 13 U/L (15-37); SGPT 20 U/L (30-65); TOTAL BILIRUBIN 0.5 mg/dL (<0.1-1.0); TOTAL PROTEIN 8.1 g/dL (6.4-8.2); TROPONIN-I LEVEL <0.06 ng/mL (<0.06)
[2018-04-13 17:26] LABS: ABSOLUTE LYMPHOCYTES 1.1 thou/uL (0.8-5.3); ABSOLUTE MONOCYTES 0.4 thou/uL (0.0-1.2); ABSOLUTE NEUTROPHILS 20.5 thou/uL (1.6-8.1)
[2018-04-13 17:27] LABS: PLATELET ESTIMATE ADEQUATE
[2018-04-13 18:47] VITALS: BP 141/67
[2018-04-13 19:30] VITALS: BP 111/60
[2018-04-14] VITALS: BP 121/51
[2018-04-14 04:00] VITALS: BP 146/72
[2018-04-14 08:06] VITALS: BP 164/57
--- NOTE | 2018-04-14 11:10 | EKG ---
[place] [address] ELECTROCARDIOGRAM REPORT Name: DAVID SARMIENTO Room: [address] ADM IN .R.#: [id number] Admission: 04/13/18 Attend Phys: Dashawn Landaverde Discharge: Date of : 47 Report #: [id number] THIS REPORT FOR: //name// [facility] ED Test Date: 2018-04-13 Test Time: 16:00:32 Pat Name: DAVID SARMIENTO Department: Room: [facility] Gender: F Spinal Surgeon: ENRIQUE : 1945 Requested By: Dean Huynh Order Number: [id number] MD: Jose F Ward Measurements Intervals [place] Rate: 98 P: 64 [place]: 159 QRS: -46 QRSD: 149 T: -10 QT: 381 QTc: 487 Interpretive Statements Sinus rhythm Supraventricular bigeminy with aberrant conduction Probable left atrial enlargement RBBB and LAFB Baseline wander in lead(s) V6 Compared to ECG 04/06/2018 08:34:15 Atrial premature complex(es) now present Left ventricular hypertrophy no longer present Electronically Signed On 04-14-2018 11:10:05 CDT by Jose F Ward [email or web address] <ELECTRONICALLY SIGNED> By: Taty Ward MD, [facility] 04/14/18 1110 1600 1600 Taty Ward MD, [facility] /EPI
[2018-04-14 12:02] VITALS: BP 137/67
[2018-04-14 15:29] VITALS: BP 134/68
[2018-04-14 20:00] VITALS: BP 132/53
[2018-04-15] VITALS: BP 127/67
[2018-04-15 04:29] VITALS: BP 142/73
[2018-04-15 09:00] VITALS: BP 155/78
[2018-04-15 11:47] VITALS: BP 146/57
[2018-04-15 13:59] LABS: BE -1.2 mmol/L (-2 to +3); HCO3 23.8 mmol/L (22.0-26.0); PCO2 41.3 mmHg (35.0-45.0); pH 7.379 (7.340-7.450)
[2018-04-15 16:21] VITALS: BP 139/58
[2018-04-15 20:00] VITALS: BP 131/53
[2018-04-16 00:10] VITALS: BP 140/53
[2018-04-16 04:00] VITALS: BP 134/68
[2018-04-16 07:45] VITALS: BP 143/69
[2018-04-16 10:31] LABS: HEMATOCRIT 32.9 % (37.0-47.0); HEMOGLOBIN 10.6 gm/dL (12.0-15.0); MCH 27.7 pg (26.0-34.0); MCHC 32.1 g/dL (28.0-37.0); MCV 86.2 fL (80.0-100.0); MPV 9.3 fl. (7.2-11.1); NUCLEATED RBCS 0 /100WBC; RBC 3.82 mil/uL (4.20-5.00); RDW-CV 13.3 % (10.5-14.5); WBC 14.8 thou/uL (4.0-11.0)
[2018-04-16 10:33] LABS: PLATELET COUNT* 296 thou/uL (150-400)
[2018-04-16 10:50] LABS: CALCIUM 8.7 mg/dL (8.5-10.1); CREATININE 0.9 mg/dL (0.6-1.3)
[2018-04-16 10:52] LABS: ABSOLUTE LYMPHOCYTES 2.2 thou/uL (0.8-5.3); ABSOLUTE MONOCYTES 0.1 thou/uL (0.0-1.2); ABSOLUTE NEUTROPHILS 12.4 thou/uL (1.6-8.1); PLATELET ESTIMATE ADEQUATE
[2018-04-16 10:53] LABS: ANISOCYTOSIS 1+; POIKILOCYTOSIS 1+
[2018-04-16 11:23] VITALS: BP 134/51
[2018-04-16 15:40] VITALS: BP 142/62
[2018-04-16 20:32] VITALS: BP 135/59
[2018-04-17] VITALS: BP 149/67
[2018-04-17 04:20] VITALS: BP 150/46
[2018-04-17 08:00] VITALS: BP 144/60
[2018-04-17 16:26] VITALS: BP 139/59
[2018-04-17 20:00] VITALS: BP 151/73
[2018-04-18 08:00] VITALS: BP 154/73
[2018-04-18 12:00] VITALS: BP 129/60
[2018-04-18 16:00] VITALS: BP 145/63
[2018-04-18 20:30] VITALS: BP 140/69
[2018-04-19] VITALS: BP 152/69
[2018-04-19 04:32] VITALS: BP 158/69
[2018-04-19 08:00] VITALS: BP 134/66
[2018-04-19] MEDS ORDERED: GUAIFENESIN DM S5 ML PO (09:42)
[2018-04-19] MEDS ORDERED: AZITHROMYCIN 2250 MG PO (09:42)
[2018-04-19] MEDS ORDERED: PREDNISONE 10 M10 M1 PO (09:42)
[2018-04-19] MEDS ORDERED: CEFDINIR300 MG PO (09:42)
[2018-04-19] MEDS ORDERED: IPRAT-ALBUT 0.5-3 ML INH (09:42)
[2018-04-19] MEDS ORDERED: ALTERA NEBULIZ1 EACH INH (09:42)
[2018-04-19 11:53] VITALS: BP 134/66
[2018-04-19 12:28] VITALS: BP 127/58
== END 2018-04-19 14:53 | disposition home or self-care (01) | DRG 871 ==
LOC: M.ERS 15:53 → M.2W 17:43 → M.TBA-ER 17:43 → M.2W 19:02
PROVIDERS: Emergency Medicine Emergency Medical Services; ADMIT Internal Medicine
DX: A41.9 Sepsis, unspecified organism (principal); J15.6 Pneumonia due to other Gram-negative bacteria; J96.21 Acute and chronic respiratory failure with hypoxia; J44.1 Chronic obstructive pulmonary disease with (acute) exacerbation; J44.0 Chronic obstructive pulmonary disease with (acute) lower respiratory infection; D72.829 Elevated white blood cell count, unspecified; I48.91 Unspecified atrial fibrillation; Z85.3 Personal history of malignant neoplasm of breast; Z90.13 Acquired absence of bilateral breasts and nipples; Z88.0 Allergy status to penicillin; Z88.2 Allergy status to sulfonamides; Z88.1 Allergy status to other antibiotic agents; Z91.041 Radiographic dye allergy status; Z87.891 Personal history of nicotine dependence; Z79.899 Other long term (current) drug therapy

== ENCOUNTER → 2018-11-23 | Outpatient (CLI) | payer MEDICARE, BC ==
[~2018-11-23] MED LIST changes: +ADVAIR HFA 230M12 GM INH; +ALTERA NEBULIZ1 EACH INH; +ARIMIDEX PO; +AUGMENTIN 875-1 EACH PO; +AZITHROMYCIN 2250 MG PO; +CEFDINIR300 MG PO; +GUAIFENESIN DM S5 ML PO; +IPRAT-ALBUT 0.5-3 ML INH; +PREDNISONE 10 M10 MG PO
--- NOTE | 2018-11-30 15:02 | SLEEP ---
[address] [address] SLEEP STUDY REPORT Name: SARMIENTODAVIDGisele DANIELS Room: [facility]#: [id number] Admission: 11/23/18 Attend Phys: Norm Forrest DO Discharge: Date of : 47 Report #: [id number] THIS REPORT FOR: //name// CC: Norm Forrest DO This study has been reviewed in its entirety by a board certified sleep specialist DATE OF SERVICE: 11/24/2018 ATTENDING PHYSICIAN: Dr. Norm Forrest. The patient is a 73-year-old who weighs 241 pounds. The patient's BMI is 40. The patient underwent home sleep study performed at [facility]. Total recording time was 415 minutes. During the night study, the patient had 263 obstructive apneas, 1 central and no mixed apneas and 256 hypopneas. The patient's apnea-hypopnea index was 69 per hour with a supine index of 69 per hour as well. Nocturnal oximetry study revealed an average oxygen saturation of 90% with the lowest of 73%. 183 minutes were spent in oxygen saturation of less than 90% and another 19 minutes with saturation of less than 85%. Mean heart rate was 87 beats per minute with a maximum 124 beats per minute. IMPRESSION: 1. Severe sleep apnea-hypopnea syndrome at an AHI of 69 per hour. 2. Bwjmoctb-mc-nugygm nocturnal hypoxia secondary to obstructive sleep apnea. RECOMMENDATIONS: 1. The patient would benefit from in-lab CPAP titration study. 2. Once optimal CPAP pressure is achieved, then follow up in 4-6 weeks to assess compliance and to document clinical improvement. 3. Weight loss is strongly advised. 4. Avoid WAIVER ANALYST depressants. 5. Caution regarding driving until symptoms of sleep apnea have resolved with the use of CPAP. <ELECTRONICALLY SIGNED> By: Jama Cheney MD 11/30/18 1502 1303 1318Ageraldo Cheney MD /nt
== END ==
LOC: M.SLEEPLAB 14:20
DX: G47.33 Obstructive sleep apnea (adult) (pediatric) (principal); I11.9 Hypertensive heart disease without heart failure; R09.02 Hypoxemia

== ENCOUNTER 2019-01-30 15:51 | Inpatient (IN) | payer MEDICARE, BC ==
[~2019-01-30] VITALS: Ht 162.6 cm; Wt 112.9 kg
[2019-01-30 15:54] VITALS: BP 149/108
[2019-01-30] MEDS ORDERED: ULTRAM 50MG TAB50 MG PO (16:05)
[2019-01-30 16:21] LABS: ABSOLUTE BASOPHILS 0.1 thou/uL (0.0-0.2); ABSOLUTE EOSINOPHILS 0.4 thou/uL (0.0-0.7); ABSOLUTE MONOCYTES 0.8 thou/uL (0.0-1.2); ABSOLUTE NEUTROPHILS 6.2 thou/uL (1.6-8.1); BASOPHILS 0.6 %; EOSINOPHILS 4.1 %; HEMATOCRIT 35.7 % (37.0-47.0); HEMOGLOBIN 11.7 gm/dL (12.0-15.0); LYMPHOCYTES 21.3 %; MCH 27.4 pg (26.0-34.0); MCHC 32.8 g/dL (28.0-37.0); MCV 83.4 fL (80.0-100.0); MONOCYTES 8.4 %; MPV 9.7 fl. (7.2-11.1); NUCLEATED RBCS 0 /100WBC; PLATELET COUNT* 292 thou/uL (150-400); POLYS 65.6 %; RBC 4.28 mil/uL (4.20-5.00); RDW-CV 13.8 % (10.5-14.5); WBC 9.4 thou/uL (4.0-11.0)
[2019-01-30 16:33] LABS: ANION GAP 10 mmol/L (7-16); BUN 21 mg/dL (7-18); CALCIUM 9.1 mg/dL (8.5-10.1); CHLORIDE 106 mmol/L (98-107); CO2 26 mmol/L (21-32); CREATININE 0.9 mg/dL (0.6-1.3); GLUCOSE 104 mg/dL (70-99); POTASSIUM 4.3 mmol/L (3.5-5.1); SODIUM 142 mmol/L (136-145)
[2019-01-30 16:34] LABS: APTT 27.7 Seconds (25.0-31.3); INR 1.1; PROTIME 11.2 Seconds (9.20-11.50)
[2019-01-30 16:47] LABS: ALBUMIN 3.5 g/dL (3.4-5.0); ALKALINE PHOSPHATASE 47 U/L (46-116); CK-MB MASS 0.8 ng/mL (<0.5-3.6); LIPASE 136 U/L (73-393); MAGNESIUM 1.5 mg/dL (1.8-2.4); NT-PRO BRAIN NAT PEPTIDE 5095 pg/mL (<300); SGOT 15 U/L (15-37); SGPT 18 U/L (30-65); TOTAL BILIRUBIN 0.4 mg/dL (<0.1-1.0); TOTAL PROTEIN 7.8 g/dL (6.4-8.2); TROPONIN-I LEVEL <0.06 ng/mL (<0.06)
[2019-01-30 18:11] VITALS: BP 135/65
[2019-01-30 18:27] VITALS: BP 146/74
--- NOTE | 2019-01-30 18:44 | NUR ---
PT ARRIVED TO ROOM 202 VIA CART AT 1820- SBA TO BED- BLASTING MACHINE OPERATOR PLACED ORDERED, TRACING A-FIB WITH RVR- CARDIZEM DRIP INFUSSING PRESICBED AT 10MG/HR- REPORT RECEIEVIED AT BED SIDE FROM RICO PHILLIPS- DX: A-FIB WITH RVR- VS 98.4 22 146/74 94% ON RA- CARDIOLOGY CONSULT CALLED- PT TO BE NPO AT MIDNIGHT R/T CARDIOLOGY CONSULT; CARDIZEM DRIP TO BE INCREASED TO 20 MG PER AND WILL SEE PT IN AM- PT DENIES ANY C/O PAIN/DISCOMFORT AT TIME OF ADMISSION- CALL LIGHT AND PERSONAL BELONGINGS WITH IN REACH- ALL NEEDS MET AT THIS TIME-WCTM
[2019-01-30 19:40] VITALS: BP 126/80
[2019-01-30 23:58] VITALS: BP 133/79
[2019-01-31 04:00] VITALS: BP 137/88
--- NOTE | 2019-01-31 04:51 | NUR ---
PT CARE ASSUMED AT 1930. ALERT AND ORIENTED X4. CALL LIGHT WITHIN REACH AND BED IN LOW POSITION. DENIES PAIN. HOURLY ROUNDING DONE FOR PT SAFETY.
[2019-01-31 07:53] VITALS: BP 153/90
--- NOTE | 2019-01-31 09:11 | NUR ---
ASSUMED CARE OF PT THIS AM AROUND 0715- PRODUCE FIELD MERCHANDISER IN PLACE ORDERED, TRACING A-FIB/BBB- UPON ASSESSMENT PT NOTED TO BE RESTING IN BED, KENNA AT SIDE- PT A&O X4- CONTINENT OF BOWEL AND BLADDER- SBA WITH TRANSFERS FOR SAFETY- LCTA, DYSPNEA NOTED ON EXERTION- VSS, O2 SAT 95% ON CPAP THIS AM- ABD SOFT/OBESE/NON-TENDER, BS X 4 QUADS- LAST BM REPORTED 01/30/19- IV NOTED TO RIGHT AC INTACT AND SL- 2+ BLE EDEMA NOTED, LEG ELEVATION ENCOURAGED- PT DENIES ANY C/O PAIN/DISCOMFORT AT THIS TIME-CALL LIGHT AND PERSONAL BELONGINGS WITH IN REACH- HOURLY ROUNDS IN PLACE R/T SAFETY/NEEDS- ALL NEEDS MET AT THIS TIME-WCTM
--- NOTE | 2019-01-31 10:42 | NUR ---
Pt is A&O. Resides at home with family. Active and independent. Pt wears a cpap at night, no other DME. No hx of HH or SNF. Goal is home at sd. No needs.
[2019-01-31 11:36] VITALS: BP 115/80
[2019-01-31 16:25] VITALS: BP 141/78
--- NOTE | 2019-01-31 16:44 | NUR ---
PT CURRENTLY RESTING IN BED- CARDAIC MONITOR IN PLACE ORDERED, TRACING A-FIB WITH BBB- IV TO RIGHT AC INTACT, IV CARDIZEM RESTARTED AT 10MG PER HOUR THIS SHIFT PER CADIOLOGY WITH PO CARDIZEM D/C'D AND BETAPACE INCREASED TO 120 BID- PT TO BE NPO AT MIDNIGHT IN CASE NEEDED CARDIOVERSION CHRISTA- GOOD PO INTAKE NOTED THIS SHIFT WITH MEALS- PT MAKES NEEDS KNOWN- ALL NEEDS MET AT THIS TIME-WCTM
--- NOTE | 2019-01-31 17:36 | EKG ---
[place] [address] ELECTROCARDIOGRAM REPORT Name: DAVID SARMIENTO Room: [address] ADM IN .R.#: [id number] Admission: 01/30/19 Attend Phys: Valerio Marsh MD Discharge: Date of : 47 Report #: [id number] THIS REPORT FOR: //name// [facility] ED Test Date: 2019-01-30 Test Time: 15:55:23 Pat Name: DAVID SARMIENTO Department: Room: [facility] Gender: F Blending Tank Tender: [place] : 1945 Requested By: Shiva Finn Order Number: [id number] MD: Cuauhtemoc Galloway Measurements Intervals [place] Rate: 143 P: [place]: QRS: -19 QRSD: 146 T: 39 QT: 320 QTc: 494 Interpretive Statements Atrial fibrillation Ventricular premature complex Right bundle branch block Baseline wander in lead(s) I,II,III,aVR,aVL,aVF,V4,V6 Compared to ECG 10/27/2018 17:20:25 Ventricular premature complex(es) now present Sinus rhythm no longer present Left anterior fascicular block no longer present Electronically Signed On 01-31-2019 17:35:56 CDT by Cuauhtemoc Galloway [email or web address] <ELECTRONICALLY SIGNED> By: Cuauhtemoc Galloway MD, [facility] 01/31/19 1735 1555 1555 Cuauhtemoc Galloway MD, [facility] /EPI
[2019-01-31 19:40] VITALS: BP 150/87
[2019-01-31 23:58] VITALS: BP 143/86
[2019-02-01 04:37] VITALS: BP 131/92
--- NOTE | 2019-02-01 05:07 | NUR ---
PT CARE ASSUMED AT 1930. ALERT AND ORIENTED X4. CALL LIGHT WITHIN REACH AND BED IN LOW POSITION. CARDIZEM GTTS RUNNING. HOURLY ROUNDING DONE FOR PT SAFETY.
[2019-02-01 07:10] VITALS: BP 139/80
[2019-02-01 10:07] VITALS: BP 139/80
--- NOTE | 2019-02-01 11:19 | EKG ---
[place] [address] ELECTROCARDIOGRAM REPORT Name: DAVID SARMIENTO Room: [address] ADM IN .R.#: [id number] Admission: 01/30/19 Attend Phys: Valerio Marsh MD Discharge: Date of : 47 Report #: [id number] THIS REPORT FOR: //name// [facility] Test Date: 2019-02-01 Test Time: 07:00:49 Pat Name: DAVID SARMIENTO Department: Room: [address] Gender: F Flame Planer: WENDI : 1945 Requested By: Valerio Marsh Order Number: [id number] Reading MD: Isaac Larose Measurements Intervals [place] Rate: 84 P: 59 [place]: 183 QRS: -42 QRSD: 153 T: -10 QT: 416 QTc: 492 Interpretive Statements Sinus rhythm Ventricular premature complex Probable left atrial enlargement RBBB and LAFB Compared to ECG 01/30/2019 15:55:23 Atrial fibrillation no longer present Electronically Signed On 02-01-2019 11:19:03 CDT by Isaac Larose [email or web address] <ELECTRONICALLY SIGNED> By: Isaac Larose MD, [facility] 02/01/19 1119 0700 0700 Isaac Larose MD, [facility] /EPI
[2019-02-01 12:03] VITALS: BP 139/80
[2019-02-01 12:23] VITALS: BP 143/78
--- NOTE | 2019-02-01 12:56 | NUR ---
INITAL ASSESSMENT COMPLETED CHARTED. VSS. TRACING SR WITH BBB. HOURLY ROUNDING IN PLACE. CLWR.
--- NOTE | 2019-02-02 07:20 | D ---
[address] [address] DISCHARGE SUMMARY Name: SARMIENTODAVIDGisele DANIELS Room: [address]#: [id number] Admission: 01/30/19 Attend Phys: Valerio Marsh MD Discharge: 02/01/19 Date of : 47 Report #: [id number] THIS REPORT FOR: //name// CC: IRA Marsh DATE OF SERVICE: 02/01/2019 DISCHARGE DIAGNOSES: Atrial fibrillation with rapid ventricular response, hypercoagulable state, chronic obstructive pulmonary disease and history of breast cancer. HOSPITAL COURSE: The patient is a 73-year-old female who presented to us here and admitted for AFib, RVR. She was placed initially on Cardizem drip. Cardiology was consulted. The patient was placed on sotalol, planned for cardioversion today, but however, the patient converted on her own, so she is doing well now. No chest pain, no palpitations. Cardiology is okay with discharging home. She will then be discharged to home. DISPOSITION: Stable. DISCHARGE PHYSICAL EXAMINATION: VITAL SIGNS: Temperature is 36.9, heart rate of 82, respiration 18, blood pressure is 143/78 and 97% on room air. GENERAL: The patient is alert. She is oriented x 3, not in acute respiratory distress. HEENT: Normocephalic, atraumatic. Nares patent. Clear oropharynx. NECK: Supple. No lymphadenopathy. CARDIOVASCULAR: Normal rate, regular rhythm. No murmurs noted. RESPIRATORY: Clear to auscultation bilaterally. No crackles. GASTROINTESTINAL: Abdomen is soft, nontender, nondistended. Good bowel sounds. No organomegaly. GENITOURINARY: Deferred. MUSCULOSKELETAL: Good strength. NEUROLOGIC: Grossly normal. PSYCHIATRIC: The patient is calm and cooperative. Again, the patient will be discharged to home. Follow up with PCP in 3-5 days, Cardiology per them. Notify physician if there is fever of more than 38 degrees, pain, shortness of breath and chest pain. DIET: Cardiac diet. ACTIVITY: No strenuous activity. Okay to discharge home [place] [address] DISCHARGE SUMMARY Name: DAVID SARMIENTO Room: [address]#: [id number] Admission: 01/30/19 Attend Phys: Valerio Marsh MD Discharge: 02/01/19 Date of : 47 Report #: [id number] DISCHARGE MEDICATIONS: Include, anastrozole 1 mg daily, apixaban 5 mg b.i.d., cholecalciferol 1000 units daily, duloxetine 60 mg daily, ferrous sulfate 325 mg daily, fluticasone - salmeterol 1 puff b.i.d., ipratropium - albuterol 3 mL q.i.d., lisinopril 10 mg daily, magnesium oxide 400 mg daily, multivitamins 1 tab daily, omeprazole 40 mg daily, potassium chloride 10 mEq daily, tramadol 50 mg every 6 hours as needed, sotalol was increased to 120 mg p.o. b.i.d., vitamin B12 1000 units daily. I spent 36 minutes taking care of this patient today. <ELECTRONICALLY SIGNED> By: Saba Juarez MD 02/02/19 0720 1241 0000Saba Juarez MD /nt
--- NOTE | 2019-02-04 12:19 | CON ---
[address] [address] CONSULTATION Name: DAVID SARMIENTO Room: [address] IN M.R.#: [id number] Admission: 01/30/19 Attend Phys: Valerio Marsh MD Discharge: 02/01/19 Date of : 47 Report #: [id number] THIS REPORT FOR: //name// CC: IRA Marsh DATE OF SERVICE: 01/31/2019 LOCATION: The patient in room 202. Thank you for allowing us to see the patient in cardiovascular assessment. HISTORY OF PRESENT ILLNESS: As you know, she is a very pleasant 73-year-old female with a history of paroxysmal atrial fibrillation, initially diagnosed in the preceding year. She has been maintained in sinus rhythm on sotalol 80 mg b.i.d. with anticoagulation with Eliquis at 5 mg b.i.d. without bleeding issues. Yesterday, she noted shortness of breath and attached a pulse oximeter, which demonstrated rapid heartbeat. She sought assistance in the [facility] Emergency Room and demonstrated atrial fibrillation with rapid response. She has received rate modulation with IV Cardizem with a subsequent change to oral and oral anticoagulation has been continued. The patient denied chest discomfort, but did note dyspnea and palpitations associated with recurrent atrial fibrillation. PAST MEDICAL HISTORY: Remarkable for breast cancer, emphysema, tubal ligation. FAMILY HISTORY: Negative for cardiac disease. SOCIAL HISTORY: The patient is a former smoker, but does not at present. REVIEW OF SYSTEMS: Remarkable for the following: PULMONARY: She noted dyspnea accompanying her palpitations. CARDIOVASCULAR: She noted palpitations associated with recurrent atrial fibrillation. MEDICATIONS: Have included Eliquis, vitamin D3, Cymbalta, ferrous sulfate, Advair, DuoNeb, lisinopril, magnesium, omeprazole, potassium, sotalol, vitamin B12 and multivitamin. PHYSICAL EXAMINATION: GENERAL: Reveals a moderately overweight elderly female. VITAL SIGNS: Blood pressure 130/70, pulse rate 115, off her IV Cardizem, respirations are 18 per minute and unlabored. CHEST: [place] [address] CONSULTATION Name: DAVID SARMIENTO JEREMIAH Room: [address]#: [id number] Admission: 01/30/19 Attend Phys: Valerio Marsh MD Discharge: 02/01/19 Date of : 47 Report #: [id number] CARDIAC: Reveals a rapid irregularly irregular rhythm without murmurs or gallops. ABDOMEN: Mildly obese. EXTREMITIES: Without significant edema and are satisfactorily perfused. LABORATORY DATA: Electrocardiogram reveals atrial fibrillation with a tachycardic response. IMPRESSION: 1. Recurrent atrial fibrillation. 2. Hypertension. 3. Chronic obstructive pulmonary disease (emphysema). 4. Weight excess. RECOMMENDATIONS: 1. Continue IV Cardizem for rate modulation. 2. Augment sotalol to 120 mg b.i.d. 3. If the patient continues to demonstrate atrial fibrillation despite our efforts at pharmaco reversion, I would plan DC cardioversion on 02/01/2019. <ELECTRONICALLY SIGNED> By: Sujit Mota MD, [facility] 02/04/19 1219 1026 0334Sujit Mota MD, [facility] /nt
== END 2019-02-01 14:00 | disposition home or self-care (01) | DRG 308 ==
LOC: M.ERS 15:51 → M.TBA-ER 16:53 → M.2W 16:53 → M.ORTHSURG 01-31 14:27 → M.2W 01-31 14:29
PROVIDERS: Family Medicine; ADMIT Family Medicine
PROC: 5A09357 Assistance with Respiratory Ventilation, Less than 24 Consecutive Hours, Continuous Positive Airway Pressure (ICD-10-PCS; principal; 2019-01-31)
DX: I48.91 Unspecified atrial fibrillation (principal); J80 Acute respiratory distress syndrome; D68.59 Other primary thrombophilia; J43.9 Emphysema, unspecified; Z85.3 Personal history of malignant neoplasm of breast; Z85.89 Personal history of malignant neoplasm of other organs and systems; Z90.13 Acquired absence of bilateral breasts and nipples; Z88.0 Allergy status to penicillin; Z88.2 Allergy status to sulfonamides; Z88.1 Allergy status to other antibiotic agents; Z91.041 Radiographic dye allergy status; Z87.891 Personal history of nicotine dependence; Z79.899 Other long term (current) drug therapy

== ENCOUNTER → 2019-02-27 | Outpatient (CLI) | payer MEDICARE, BC ==
[~2019-02-27] MED LIST changes: +ULTRAM 50MG TAB50 MG PO
--- NOTE | 2019-03-07 15:27 | SLEEP ---
[address] [address] SLEEP STUDY REPORT Name: DAVID SARMIENTO Room: [facility]#: [id number] Admission: 02/27/19 Attend Phys: Norm Forrest DO Discharge: Date of : 47 Report #: [id number] THIS REPORT FOR: //name// CC: Norm Forrest DO This study has been reviewed in its entirety by a board certified sleep specialist DATE OF SERVICE: 02/27/2019 SLEEP STUDY REFERRING PHYSICIAN: Norm Forrest DO The patient is 73 years old who weighs 241 pounds with a BMI of 42.7. The patient underwent a split night study performed at [facility]. During the night study, the patient spent 36 minutes in bed and slept for 270 minutes with a low sleep efficiency of 62%. Sleep latency was 57 minutes with a REM latency of 370 minutes and both were prolonged. Overall, sleep architecture showed normal stage 1 and stage 2 sleep, increased slow wave sleep and slightly reduced REM sleep, which was 14% of the total sleep time. During the initial diagnostic portion of the study, the patient slept for 71 minutes. During that time, there was one obstructive sleep apnea, no mixed or central apneas and 22 hypopneas. The patient's apnea hypopnea index was 43.8 per hour with a supine index of 43.8 per hour as well. REM sleep was not seen during the diagnostic portion of the study. EKG monitoring revealed an average heart rate of 87 beats per minute. No sustained arrhythmias observed. PLMS are seen at an index of 264 per hour and 34 per hour caused EEG arousals. PLM index reduced to 106 per hour at an arousal index of 15.8 per hour while the patient slept on the CPAP. Nocturnal oximetry study revealed an average oxygen saturation of 92% with the lowest of 86%. 7.6 minutes were spent in an oxygen saturation of less than 89%. The patient met the criteria for CPAP initiation and was started at 6 cm of water and titrated up to 15 cm of water. At the final pressure, the patient slept for 32 minutes including 18 minutes of REM sleep. The patient had supine sleep as well. The patient's AHI was reduced to 5.6 per hour and oxygen saturation remained above 88% with a low spot desaturation of 84% at the beginning of this pressure. The patient did have some [place] [address] SLEEP STUDY REPORT Name: DAVID SARMIENTO Room: [facility]#: [id number] Admission: 02/27/19 Attend Phys: Norm Forrest DO Discharge: Date of : 47 Report #: [id number] uses a nasal mask and would benefit from a chinstrap. IMPRESSION: 1. Severe sleep apnea-hypopnea syndrome with an AHI of 43.8 per hour. REM sleep was not seen during the diagnostic portion of the study. 2. Mild nocturnal hypoxia significantly improved while on CPAP. 3. Severe periodic limb movements. 4. Reduced sleep efficiency resulting from sleep onset and sleep maintenance insomnia. RECOMMENDATIONS: 1. CPAP at 15 cm of water should be used on a nightly basis. The patient should use a chinstrap with a nasal mask in order to avoid oral leak, which was seen at this pressure. 2. Follow up in 4-6 weeks to assess compliance with CPAP and to document clinical improvement along with review of the download data. 3. Weight loss is strongly advised. 4. Avoid FOOD AND NUTRITION SUPERVISOR depressants. 5. Cautioned regarding driving until symptoms of sleep apnea resolve with the use of CPAP. 6. The patient's PLM can be treated with dopaminergic agonist agents. The patient should also be further evaluated for symptoms of restless legs during the day. 7. The patient's sleep efficiency was reduced on the split night study. If the patient has chronic insomnia, she should be further evaluated and treated according to the etiology. <ELECTRONICALLY SIGNED> By: Jama Cheney MD 03/07/19 1527 1036 1311Aman Dylon Cheney MD /nt
== END ==
LOC: M.SLEEPLAB 02-01 21:00
DX: G47.33 Obstructive sleep apnea (adult) (pediatric) (principal); G47.34 Idiopathic sleep related nonobstructive alveolar hypoventilation; Z99.89 Dependence on other enabling machines and devices

== ENCOUNTER → 2020-08-18 | Outpatient (CLI) | payer MEDICARE, BC ==
[2020-08-18 12:59] LABS: CREATININE 0.9 mg/dL (0.6-1.3)
== END ==
LOC: M.LAB 12:35 → M.CT 14:00
PROVIDERS: ATTEND Family Medicine
DX: I77.810 Thoracic aortic ectasia (principal); I25.10 Atherosclerotic heart disease of native coronary artery without angina pectoris

== ENCOUNTER 2021-02-24 16:06 | Inpatient (IN) | payer MEDICARE, BC ==
[~2021-02-24] VITALS: Ht 160 cm; Wt 119.1 kg
--- NOTE | ~2021-02-24 | CON ---
[address] [address] CONSULTATION Name: DAVID SARMIENTO Ayaka Room: [address] IN M.R.#: [id number] Admission: 02/24/21 Attend Phys: Yohan Mujica MD Discharge: Date of : 47 Report #: [id number] THIS REPORT FOR: cc: Evan Pastor Adam J DO Pervez, Adeel MD ~ DOC #: [id number] Bret Zamudio MD DATE OF CONSULTATION: 02/25/2021 REQUESTING PHYSICIAN: Consult has been requested by Dr. Yohan Mujica. INDICATION FOR CONSULTATION: Pneumonia/history of aspiration. HISTORY OF PRESENT ILLNESS: This is a 75-year-old female. She has an extensive history of smoking in the past, but she discontinued in the . She does have severe obstructive sleep apnea and is on a CPAP as well as oxygen at night. She is anticoagulated with Eliquis for atrial fibrillation and does have a history of breast cancer as well. The patient reports that she has had some shortness of breath on exertion as well as cough for a while. She particularly noticed this around 3 weeks ago when she choked on a hamburger, but she says that primarily her symptoms have worsened over the last week. She is having increasing shortness of breath, has had cough, has brought up small amounts of white as well as yellow sputum as well, also has had a fever. She went to her primary care physician's office and I understand she was also found to be hypoxemic, which is the reason that she was referred to this hospital. Note that at baseline, the patient uses oxygen while asleep only. Since yesterday, the patient has received Solu-Medrol. She is also being treated with doxycycline as well as aztreonam. She says that she is feeling better than where she was yesterday, but still does have shortness of breath at rest, is maintaining O2 saturation in the mid 90s. She is on 2 L nasal cannula. She does have some swelling of lower extremities. This has not changed recently. She has had some joint pains, which are at baseline. She has had disturbed sleep as well as daytime sleepiness. These are also at baseline. She answered to the negative for 12 questions for review of systems, except as mentioned above. PAST MEDICAL HISTORY: Obstructive lung disease, bronchial asthma versus COPD. There is Advair on her medication list as well as DuoNeb at home. The patient does not report taking either one regularly, obstructive sleep apnea, severe, based on the last sleep study, was on a CPAP of 15 cm of water with 2 liters of oxygen in line. The patient does report using the CPAP regularly with oxygen, [place] [address] CONSULTATION Name: JESS SARMIENTOGisele Marley Room: [address] IN .R.#: [id number] Admission: 02/24/21 Attend Phys: Yohan Mujica MD Discharge: Date of : 47 Report #: [id number] breast cancer, status post bilateral mastectomy in 2007/2014. There is mention of malignancy in the spine on the previous records; however, the patient does not appear to be aware of this, atrial fibrillation, on Eliquis, normal left ventricular ejection fraction with a pulmonary artery systolic elevated to 47 in the last echo available from 2017. SOCIAL HISTORY: The patient does report that she had an extensive history of smoking when she was younger. She states she discontinued probably in the . No known history of heavy alcohol use or illegal drug use. CURRENT MEDICATIONS: List in [employer] reviewed. HOME MEDICATIONS: List also in [employer] reviewed. Also, see discussion above. FAMILY HISTORY: No pertinent family history. ALLERGIES: SHE IS ALLERGIC TO MOLD and therefore she says she avoids penicillin. There is really no documented reaction to penicillin. She has had cephalosporins in the past without problems. Also, she reports that she had a rash after iodine administration. She has since then had a CT chest with IV dye back in 2019. It is not known to me as to whether the patient was premedicated at that time or not. Also, she reports having had swelling and hives with ciprofloxacin. PHYSICAL EXAMINATION: GENERAL: She is alert, awake and oriented, does not appear to be in any distress at this time. VITAL SIGNS: Has a pulse of 84 and a blood pressure of 128/66, is saturating 95% on 2 liters nasal cannula. Respiratory rate is 15-17. She is afebrile with a temperature of 36.2. Body mass index is elevated to 46. HEENT: Head is normocephalic and atraumatic. Pupils are equal and reactive. There is no throat erythema. She has a narrow airway. NECK: Does not show raised JVP asymmetry, mass or lymph nodes. CHEST: Symmetrical expansion on inspection and palpation. On auscultation, breath sounds are bilaterally equal. I do not hear any added sounds. Breath sounds, however, are decreased bilaterally. HEART: Regular, no murmur. ABDOMEN: Soft and nontender. EXTREMITIES: Lower extremities show trace edema. There is some evidence of chronic venous insufficiency. Skin, however, is dry and intact. NEUROLOGIC: Moves all extremities bilaterally equally and spontaneously with no focal deficit identified. LABORATORY DATA: The patient's CT chest films as well as report are reviewed [facility] [address] [place] [address] CONSULTATION Name: TORSTENDAVID Marley Room: [address] IN .R.#: [id number] Admission: 02/24/21 Attend Phys: Yohan Mujica MD Discharge: Date of : 47 Report #: [id number] and are in fact called and discussed with the radiologist, Dr. Cee as well. The patient's lab work is in [employer] and this is also reviewed. ASSESSMENT AND PLAN: 1. Shortness of breath. The patient does have community-acquired pneumonia. In addition, as above, there is a reported episode of choking/aspiration on hamburger, which may or may not be related to her pneumonia. This appears to be the primary etiology of her shortness of breath. 2. Pulmonary infiltrates/community acquired pneumonia/rule out lung mass. Primarily, the findings in the lung roe appear to be of an inflammatory/infectious etiology. Certainly, underlying malignancy is not completely ruled out at this time; however, these findings are new compared with 08/2020, which makes malignancy less likely. I recommend continuing with broad spectrum antibiotics. We will try to obtain a sputum culture as well as a nasal swab for MRSA, recommend continuing with doxycycline; however, I switched her over to p.o. initially as the patient is already on aztreonam. I ordered cefepime instead to provide more gram-positive coverage. If the patient does well down the line, I will be inclined to switch cefepime over to either ceftriaxone or oral cefdinir. Underlying lung malignancy is not ruled out at this time; therefore, I do recommend that we obtain a followup CT chest in 1 month. 3. Metastatic spine malignancy/lytic lesions. While I am not aware of a biopsy, the findings in the spine at T9 and T12 level are in fact consistent with a metastatic malignancy. These findings are also present on the previous CT performed in 08/2020 and there is mention of spine cancer in the patient's records, the patient, however, is not aware of this. The patient says that she follows with Dr. Garcia with Oncology. If this has not been previously investigated, then an oncology consult can be considered. If this is to be investigated further, then obtaining an MRI of the spine to further delineate local extent of these lesions as well as a bone scan to assess spread of disease or possible considerations, I would defer to the primary service. 4. Bronchial asthma exacerbation/possible chronic obstructive pulmonary disease exacerbation on the record; however, she only has a remote history of smoking. Regardless, she has received Solu-Medrol yesterday, I continued with relatively lower dose of Solu-Medrol of 40 mg daily for now. We will likely follow up with a prednisone taper. We will give her DuoNeb. 5. Episode of aspiration. We will also consult speech for swallow evaluation. Recommend aspiration precautions. 6. Obstructive sleep apnea. Continue CPAP with oxygen while asleep. 7. History of breast cancer, status post bilateral mastectomy. 8. Atrial fibrillation noted to be on Eliquis as well as sotalol. 9. Clostridium difficile prophylaxis, Lactinex. Thanks for this consultation. [address] [address] CONSULTATION Name: DAVID SARMIENTO Room: [address] M.R.#: [id number] Admission: 02/24/21 Attend Phys: Yohan Mujica MD Discharge: Date of : 47 Report #: [id number] MD MAKAYLA Cloud/RONY By: 1555 [id number] Zamudio MD /nt
[2021-02-24 16:13] VITALS: BP 153/67
[2021-02-24 16:32] LABS: ABSOLUTE BASOPHILS 0.1 thou/uL (0.0-0.2); ABSOLUTE EOSINOPHILS 0.4 thou/uL (0.0-0.7); ABSOLUTE LYMPHOCYTES 1.3 thou/uL (0.8-5.3); ABSOLUTE MONOCYTES 1.3 thou/uL (0.0-1.2); ABSOLUTE NEUTROPHILS 9.6 thou/uL (1.6-8.1); BASOPHILS 0.8 %; EOSINOPHILS 2.8 %; HEMATOCRIT 31.7 % (37.0-47.0); HEMOGLOBIN 10.4 gm/dL (12.0-15.0); LYMPHOCYTES 10.3 %; MCH 27.9 pg (26.0-34.0); MCHC 32.9 g/dL (28.0-37.0); MCV 84.7 fL (80.0-100.0); MONOCYTES 10.3 %; MPV 8.5 fl. (7.2-11.1); NUCLEATED RBCS 0 /100WBC; PLATELET COUNT* 319 thou/uL (150-400); POLYS 75.8 %; RBC 3.75 mil/uL (4.20-5.00); WBC 12.6 thou/uL (4.0-11.0)
[2021-02-24 16:43] LABS: CREATININE 0.9 mg/dL (0.6-1.3); POTASSIUM 4.6 mmol/L (3.5-5.1)
[2021-02-24 16:56] LABS: TOTAL BILIRUBIN 0.3 mg/dL (<0.1-1.0); TOTAL PROTEIN 7.9 g/dL (6.4-8.2)
[2021-02-24 20:08] VITALS: BP 126/47
[2021-02-24 21:00] VITALS: BP 139/82
[2021-02-25 00:24] VITALS: BP 112/51
[2021-02-25 04:37] LABS: HEMATOCRIT 31.5 % (37.0-47.0); HEMOGLOBIN 10.6 gm/dL (12.0-15.0); MCH 28.6 pg (26.0-34.0); MCHC 33.7 g/dL (28.0-37.0); MCV 84.8 fL (80.0-100.0); MPV 9.3 fl. (7.2-11.1); NUCLEATED RBCS 0 /100WBC; PLATELET COUNT* 276 thou/uL (150-400); RBC 3.71 mil/uL (4.20-5.00); RDW-CV 14.1 % (10.5-14.5); WBC 9.8 thou/uL (4.0-11.0)
--- NOTE | 2021-02-25 04:43 | NUR ---
RECEIVED REPORT FROM ED RN. PT TRANSFERRED TO 205. PT A&OX4. VSS. WASH CREW PERSON IN PLACE. ADMISSION HISTORY & PHYSICAL ASSESSMENT COMPLETED AND CHARTED. PT ON O2 AT 2L NC/CPAP AT HS. PT TRACING SR/BBB/PAC ON TELE. PT UPADLIB TO RESTROOM. PT DENIES ANY PAIN. CALL LIGHT WITHIN REACH.
[2021-02-25 04:51] LABS: CALCIUM 9.2 mg/dL (8.5-10.1); CREATININE 0.8 mg/dL (0.6-1.3)
[2021-02-25 05:35] VITALS: BP 121/60
[2021-02-25 05:36] LABS: ABSOLUTE LYMPHOCYTES 0.7 thou/uL (0.8-5.3); ABSOLUTE MONOCYTES 0.2 thou/uL (0.0-1.2); ABSOLUTE NEUTROPHILS 8.9 thou/uL (1.6-8.1); PLATELET ESTIMATE ADEQUATE
[2021-02-25 05:37] LABS: ANISOCYTOSIS 1+; POIKILOCYTOSIS 1+
[2021-02-25 08:23] VITALS: BP 137/63
--- NOTE | 2021-02-25 09:51 | NUR ---
ASSUMED CARE OF PT THIS AM AROUND 07- SALON SHAMPOO ASSISTANT IN PLACE ORDERED, TRACING SR WITH BBB- UPON ASSESSMENT PT NOTED TO BE RESTING IN BED- PT A&O X4- CONT OF B/B- UP AD-SHADIA IN ROOM, STEADY GAIT NOTED-COURSE LUNG SOUNDS, DYSPNEA NOTED ON EXERTION-LOOSE NON-PRODUCTIVE COUGH NOTED- VSS, O2 SAT 96% ON 2L VIA NC- ABD SOFT/ROUND/NON-TENDER, BS X 4 QUADS- LAST BM REPORTED 02/24/21- IV NOTED TO RIGHT AC INTACT, IV ABT INFUSSING THIS PRESCIBED- GOOD PO INTAKE NOTED THIS AM WITH BREAKFAST- 2-3+ BLE NON-PITTING EDEMA NOTED- PT DENIES ANY C/O PAIN/DISCOMFORT AT THIS TIME- CALL LIGHT AND PERSONAL BELONGINGS WITH IN REACH- ALL NEEDS MET AT THIS TIME
--- NOTE | 2021-02-25 11:48 | EKG ---
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 Mechanic: ELLIS : 1945 Requested By: Shiva Finn Order Number: [id number] MD: Cuauhtemoc Galloway Measurements Intervals [place] Rate: 98 P: 124 DE: 192 QRS: -47 QRSD: 152 T: 1 QT: 413 QTc: 528 Interpretive Statements Sinus rhythm RBBB and LAFB Compared to ECG 02/01/2019 07:00:49 Left ventricular hypertrophy now present Ventricular premature complex(es) no longer present Electronically Signed On 02-25-2021 11:48:04 CDT by Cuauhtemoc Galloway [email or web address] <ELECTRONICALLY SIGNED> By: Cuauhtemoc Galloway MD, FACC 02/25/21 1148 1630 1630 Cuauhtemoc Galloway MD, FACC /EPI
[2021-02-25 12:00] VITALS: BP 128/66
--- NOTE | 2021-02-25 14:40 | NUR ---
AMADEO SPK WITH PT WHO INDICATED SHE LIVES WITH HER DTR, YOSEF. PT IS INDEPENDENT WITH CARES. PT IS FT EMPLOYEED. PT HAS NO HX HH OR SNF. PT HAS CAN, CPAP AND O2 AT NIGHT, 2L NC VIA [facility].
[2021-02-25 16:00] VITALS: BP 126/57
[2021-02-25 20:00] VITALS: BP 128/60
[2021-02-26 00:19] VITALS: BP 130/59
[2021-02-26 04:00] VITALS: BP 132/67
[2021-02-26 04:05] LABS: HEMATOCRIT 30.4 % (37.0-47.0); HEMOGLOBIN 10.1 gm/dL (12.0-15.0); MCHC 33.2 g/dL (28.0-37.0); MCV 84.4 fL (80.0-100.0); MPV 9.5 fl. (7.2-11.1); RBC 3.6 mil/uL (4.20-5.00); RDW-CV 14.4 % (10.5-14.5); WBC 15.7 thou/uL (4.0-11.0)
[2021-02-26 04:23] LABS: CALCIUM 9.1 mg/dL (8.5-10.1); CREATININE 0.9 mg/dL (0.6-1.3); POTASSIUM 4.8 mmol/L (3.5-5.1)
--- NOTE | 2021-02-26 06:00 | NUR ---
ASSUMED CARE OF PT AFTER REPORT AT 1930. PT A&OX4. VSS. PHYSICAL ASSESSMENT COMPLETED AND CHARTED. PT ON O2 AT 2LNC/CPAP AT HS. PT TRACING SR/BBB/PAC ON TELE. PT UPADLIB TO RESTROOM. SPUTUM SPECIMEN & MRSA SWAB SENT TO LAB. PT DENIES ANY PAIN. CALL LIGHT WITHIN REACH.
[2021-02-26 08:00] VITALS: BP 131/58
[2021-02-26 12:00] VITALS: BP 117/49
--- NOTE | 2021-02-26 12:16 | NUR ---
ASSUMED CARE OF PATIENT THIS AM AT 0730. PATIENT IS ALERT AND ORIENTED X 4. SHE DENIES PAIN AND DISCOMFORT THIS AM. PATIENT IS TAKING HER DIET WELL. TELE HAS SHOWN SR WITH A BBB AND PACS. IV ANTIBIOTICS INFUSED. NO FALLS OR INJURY.
--- NOTE | 2021-02-26 15:14 | NUR ---
Out of bed today, anticipate dc tomorrow.
[2021-02-26 16:00] VITALS: BP 119/46
[2021-02-26 20:15] VITALS: BP 139/63
[2021-02-27] VITALS: BP 131/61
[2021-02-27 04:00] VITALS: BP 148/60
--- NOTE | 2021-02-27 05:32 | NUR ---
PT SLEPT MOST OF SHIFT. ASSESSMENT DOCUMENTED. MEDS GIVEN PER E-MAR. IV PATENT. NO REPORTS OF PAIN. PT WORE HOME C-PAP WHILE SLEEPING. PT ABLE TO MAKE NEEDS KNOWN. WILL CONTINUE WITH PLAN OF CARE.
[2021-02-27 06:14] LABS: HEMATOCRIT 30.7 % (37.0-47.0); HEMOGLOBIN 10.2 gm/dL (12.0-15.0); MCH 28.1 pg (26.0-34.0); MCHC 33.2 g/dL (28.0-37.0); MCV 84.7 fL (80.0-100.0); MPV 9.4 fl. (7.2-11.1); RBC 3.63 mil/uL (4.20-5.00); RDW-CV 14.2 % (10.5-14.5); WBC 10.9 thou/uL (4.0-11.0)
[2021-02-27 06:18] LABS: CALCIUM 9.1 mg/dL (8.5-10.1); CREATININE 0.8 mg/dL (0.6-1.3)
[2021-02-27] MEDS ORDERED: CEFDINIR300 MG PO (08:02)
[2021-02-27 08:46] VITALS: BP 120/48
[2021-02-27] MEDS ORDERED: IPRAT-ALBUT 0.5-3 ML INH (10:33)
[2021-02-27 12:00] VITALS: BP 132/50
[2021-02-27 12:20] VITALS: BP 120/48
[2021-02-27] MEDS ORDERED: DOXYCYCLINE 10100 MG PO (13:32)
[2021-02-27] MEDS ORDERED: PREDNISONE 10 M10 MG PO (13:32)
--- NOTE | 2021-02-27 15:40 | NUR ---
Reviewed discharge teaching with patient; verbalized understanding. Telemetry & IV dc'd. Discharged from unit per WC.
== END 2021-02-27 15:30 | disposition home or self-care (01) | DRG 177 ==
LOC: M.ERS 16:06 → M.TBA-ER 17:09 → M.2W 17:09
PROVIDERS: Family Medicine; ADMIT Internal Medicine; ATTEND Internal Medicine
PROC: 5A09357 Assistance with Respiratory Ventilation, Less than 24 Consecutive Hours, Continuous Positive Airway Pressure (ICD-10-PCS; principal; 2021-02-24)
PROC: 5A09357 Assistance with Respiratory Ventilation, Less than 24 Consecutive Hours, Continuous Positive Airway Pressure (ICD-10-PCS; 2021-02-26)
DX: J69.0 Pneumonitis due to inhalation of food and vomit (principal); J96.21 Acute and chronic respiratory failure with hypoxia; R65.10 Systemic inflammatory response syndrome (SIRS) of non-infectious origin without acute organ dysfunction; Z68.42 Body mass index [BMI] 45.0-49.9, adult; E66.2 Morbid (severe) obesity with alveolar hypoventilation; J43.9 Emphysema, unspecified; D64.9 Anemia, unspecified; I48.91 Unspecified atrial fibrillation; Z20.822 Contact with and (suspected) exposure to COVID-19; Z85.3 Personal history of malignant neoplasm of breast; Z87.891 Personal history of nicotine dependence; Z90.13 Acquired absence of bilateral breasts and nipples; Z85.89 Personal history of malignant neoplasm of other organs and systems; Z79.01 Long term (current) use of anticoagulants; Z79.899 Other long term (current) drug therapy; Z88.0 Allergy status to penicillin; Z88.2 Allergy status to sulfonamides; Z88.1 Allergy status to other antibiotic agents; Z88.8 Allergy status to other drugs, medicaments and biological substances

== ENCOUNTER → 2021-04-16 | Outpatient (CLI) | payer MEDICARE, BC ==
[~2021-04-16] MED LIST changes: +DOXYCYCLINE 10100 MG PO
[2021-04-16 14:29] LABS: CREATININE 0.9 mg/dL (0.6-1.3)
== END ==
LOC: M.LAB 13:59 → M.CT 15:00
PROVIDERS: ATTEND Family Medicine
DX: R91.8 Other nonspecific abnormal finding of lung field (principal); M41.84 Other forms of scoliosis, thoracic region; M47.814 Spondylosis without myelopathy or radiculopathy, thoracic region; K80.20 Calculus of gallbladder without cholecystitis without obstruction; Z90.13 Acquired absence of bilateral breasts and nipples

== ENCOUNTER 2021-09-13 16:21 | Inpatient (IN) | payer MEDICARE, BC ==
[~2021-09-13] VITALS: Ht 160 cm; Wt 113.4 kg
[2021-09-13 17:17] VITALS: BP 164/65
[2021-09-13 17:59] LABS: BE 3.5 mmol/L (-2 to +3); PCO2 42.3 mmHg (35.0-45.0)
[2021-09-13 18:03] LABS: PO2 52.5 mmHg (75.0-100.0)
[2021-09-13 18:40] LABS: ABSOLUTE BASOPHILS 0.1 thou/uL (0.0-0.2); ABSOLUTE EOSINOPHILS 0.6 thou/uL (0.0-0.7); ABSOLUTE LYMPHOCYTES 1.2 thou/uL (0.8-5.3); ABSOLUTE NEUTROPHILS 11.4 thou/uL (1.6-8.1); BASOPHILS 0.5 %; EOSINOPHILS 3.9 %; HEMATOCRIT 37.1 % (37.0-47.0); HEMOGLOBIN 12.2 gm/dL (12.0-15.0); LYMPHOCYTES 8.5 %; MCH 27.7 pg (26.0-34.0); MCHC 32.9 g/dL (28.0-37.0); MCV 84.1 fL (80.0-100.0); MONOCYTES 7.3 %; MPV 8.9 fl. (7.2-11.1); NUCLEATED RBCS 0 /100WBC; PLATELET COUNT* 306 thou/uL (150-400); POLYS 79.8 %; RBC 4.41 mil/uL (4.20-5.00); RDW-CV 14.1 % (10.5-14.5); WBC 14.3 thou/uL (4.0-11.0)
[2021-09-13 18:51] LABS: CALCIUM 9.3 mg/dL (8.5-10.1); CREATININE 0.9 mg/dL (0.6-1.3); POTASSIUM 4.3 mmol/L (3.5-5.1)
[2021-09-13 19:02] LABS: ALBUMIN 3.1 g/dL (3.4-5.0); TOTAL BILIRUBIN 0.5 mg/dL (<0.1-1.0); TOTAL PROTEIN 8.5 g/dL (6.4-8.2)
[2021-09-13 19:06] LABS: INFLUENZA A ANTIGEN Negative (Negative); INFLUENZA B ANTIGEN Negative (Negative)
[2021-09-14 01:35] VITALS: BP 149/92
[2021-09-14 09:45] VITALS: BP 122/48
--- NOTE | 2021-09-14 09:55 | NUR ---
Pt is admitted to the hospital on 09/13/20 with Pneumonia. Called pt's daughter - Neli to complete assessment. Pt lives with daughter in a house - which she utlizes the garage with no steps to enter. Pt was previously independent in ADL's and mobility and didn't use an assistive device. Pt ulitizes [facility] for . Pt has no hx of HH/SNF. Pt fills prescriptions at [facility] on [address] Pt last saw her PCP a month ago. Anticipate pt will likely need SNF vs HH. CM to continue to follow for discharge planning.
--- NOTE | 2021-09-14 10:39 | EKG ---
[place] [address] ELECTROCARDIOGRAM REPORT Name: TORSTENDAVID Room: [place] [address] ADM IN [facility]#: [id number] Admission: 09/13/21 Attend Phys: Yunier Chiu Discharge: Date of : 47 Date of Service: 09/13/21 181 Report #: [id number] THIS REPORT FOR: //name// 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: JOSEPHINE : 1945 Requested By: Ashley Hayden Order Number: [id number] MD: Cuauhtemoc Galloway Measurements Intervals [place] Rate: 93 P: 111 VA: 198 QRS: -49 QRSD: 153 T: 34 QT: 382 QTc: 476 Interpretive Statements Sinus rhythm RBBB and LAFB Probable left ventricular hypertrophy Baseline wander in lead(s) V2,V3 Compared to ECG 02/24/2021 16:30:10 No significant changes Electronically Signed On 09-14-2021 10:38:46 TIE MAKER by Cuauhtemoc Galloway [email or web address] <ELECTRONICALLY SIGNED> By: Cuauhtemoc Galloway MD, FACC 09/14/21 1038 1819 1819 Cuauhtemoc Galloway MD, FACC /EPI
--- NOTE | 2021-09-14 12:09 | 2DMMODE ---
[place] [address] 2 D/M-MODE ECHOCARDIOGRAM Name: DAVID SARMIENTO Ayaka Room: [place] [address] ADM IN [place].#: [id number] Admission: 09/13/21 Attend Phys: Yunier Chiu Discharge: Date of : 47 Date of Service: 09/14/21 1209 Report #: [id number] THIS REPORT FOR: cc: Evan Pastor Adam J DO Liston, Michael J. MD [facility] ~ APPROVED REPORT Study performed: 09/14/2021 11:06:03 EXAM: Comprehensive 2D, Doppler, and color-flow Echocardiogram Patient Location: Bedside BSA: 2.13 HR: 74 bpm BP: 149/92 mmHg Other Information Study Quality: Adequate Technically limited study due to body habitus, inability to position patient. Indications Atrial Fibrillation 2D Dimensions IVSd: 9.98 (7-11mm) LVOT Diam: 16.18 (18-24mm) LVDd: 43.81 mm PWd: 9.18 (7-11mm) Ascending Ao: 32.68 (22-36mm) LVDs: 28.67 (25-40mm) Aortic Root: 28.26 mm Volumes Left Atrial Volume (Systole) LA ESV Index: 29.60 mL/m2 Aortic Valve AoV Peak Triston.: 1.37 m/s AO Peak Gr.: 7.50 mmHg LVOT Max P.11 mmHg AO Mean Gr.: 4.30 mmHg LVOT Mean P.57 mmHg LVOT Max V: 1.13 m/s AO V2 VTI: 22.13 cm LVOT Mean V: 0.74 m/s GAURANG (VTI): 1.82 cm2 LVOT V1 VTI: 19.58 [place] [address] 2 D/M-MODE ECHOCARDIOGRAM Name: DAVID SARMIENTO Room: [address] IN [facility]#: [id number] Admission: 09/13/21 Attend Phys: Yunier Chiu Discharge: Date of : 47 Date of Service: 09/14/21 1209 Report #: [id number] Mitral Valve E/A Ratio: 0.57 MV Decel. Time: 118.10 ms MV E Max Triston.: 0.62 m/s MV PHT: 34.25 ms MVA (PHT): 6.42 cm2 TDI E/Lateral E': 8.86 Lateral E' Triston.: 0.07 m/s Pulmonary Valve PV Peak Triston.: 1.11 m/s PV Peak Gr.: 4.95 mmHg Tricuspid Valve RAP Estimate: 15.00 mmHg TR Peak Gr.: 27.88 mmHg RVSP: 42.88 mmHg PA Pressure: 42.88 mmHg Left Ventricle The left ventricle is normal size. There is normal LV segmental wall motion. There is normal left ventricular wall thickness. Left ventricular systolic function is normal. LVEF is 60-65%. Grade I - abnormal relaxation pattern. Right Ventricle The right ventricle is normal size. The right ventricular systolic function is normal. Atria Left atrium is mildly dilated. The right atrium size is normal. Aortic Valve The aortic valve is normal in structure. No aortic regurgitation is present. There is no aortic valvular stenosis. Mitral Valve There is mitral annular calcification. Trace mitral regurgitation. No evidence of mitral valve stenosis. Tricuspid Valve The tricuspid valve is normal in structure. Trace tricuspid regurgitation[place] [address] 2 D/M-MODE ECHOCARDIOGRAM Name: JESS SARMIENTOGisele Marley Room: [address] IN .R.#: [id number] Admission: 09/13/21 Attend Phys: Yunier Chiu Discharge: Date of : 47 Date of Service: 09/14/21 1209 Report #: [id number] The pulmonary valve is normal in structure. There is no pulmonic valvular regurgitation. Great Vessels The aortic root is normal in size. IVC is dilated. Pericardium There is no pericardial effusion. <Conclusion> The left ventricle is normal size. There is normal left ventricular wall thickness. Left ventricular systolic function is normal. LVEF is 60-65%. Grade I - abnormal relaxation pattern. Left atrium is mildly dilated. Trace mitral regurgitation. Trace tricuspid regurgitation. IVC is dilated. <ELECTRONICALLY SIGNED> By: Cuauhtemoc Galloway MD, FACC 09/14/211208 08 08 Cuauhtemoc Galloway MD, FACC /INF
[2021-09-14 13:45] VITALS: BP 122/53
[2021-09-14 17:45] VITALS: BP 135/61
--- NOTE | 2021-09-14 18:53 | NUR ---
EATING WELL TODAY. 100% ALL MEALS.
[2021-09-14 20:00] VITALS: BP 135/61
[2021-09-15] VITALS (7 sets, daily range): BP systolic 116–142; BP diastolic 49–74
[2021-09-15 03:22] LABS: HEMATOCRIT 34.3 % (37.0-47.0); HEMOGLOBIN 10.9 gm/dL (12.0-15.0); MCH 27.5 pg (26.0-34.0); MCHC 31.9 g/dL (28.0-37.0); MCV 86.3 fL (80.0-100.0); MPV 9.4 fl. (7.2-11.1); RBC 3.98 mil/uL (4.20-5.00); RDW-CV 14.2 % (10.5-14.5); WBC 15.4 thou/uL (4.0-11.0)
[2021-09-15 03:43] LABS: ALBUMIN 2.6 g/dL (3.4-5.0); CALCIUM 8.9 mg/dL (8.5-10.1); CREATININE 0.9 mg/dL (0.6-1.3); MAGNESIUM 1.9 mg/dL (1.8-2.4); POTASSIUM 4.5 mmol/L (3.5-5.1); TOTAL BILIRUBIN 0.2 mg/dL (<0.1-1.0); TOTAL PROTEIN 7.3 g/dL (6.4-8.2)
[2021-09-16] VITALS: BP 136/63
[2021-09-16 04:00] VITALS: BP 125/51
[2021-09-16 04:37] LABS: HEMATOCRIT 33.1 % (37.0-47.0); HEMOGLOBIN 10.8 gm/dL (12.0-15.0); MCH 28.1 pg (26.0-34.0); MCHC 32.6 g/dL (28.0-37.0); MCV 86.3 fL (80.0-100.0); MPV 9.4 fl. (7.2-11.1); RBC 3.83 mil/uL (4.20-5.00); RDW-CV 14.1 % (10.5-14.5); WBC 11.1 thou/uL (4.0-11.0)
[2021-09-16 04:50] LABS: ALBUMIN 2.5 g/dL (3.4-5.0); CALCIUM 8.9 mg/dL (8.5-10.1); CREATININE 1.1 mg/dL (0.6-1.3); POTASSIUM 4.5 mmol/L (3.5-5.1); TOTAL BILIRUBIN 0.2 mg/dL (<0.1-1.0)
[2021-09-16 08:00] VITALS: BP 134/61
--- NOTE | 2021-09-16 10:36 | NUR ---
Nutrition: Pt admitted with RLL PNA. Assessed for high BMI. Pt eating 100% of regular diet. Wt is near usual of ~250#. PMHx: COPD, afib, emphysema. Wears CPAP. She follows low Na diet at home. Labs: BG 132, alb 2.5, prealb 19. Appears at low nutrition risk.
[2021-09-16 11:36] VITALS: BP 125/52
--- NOTE | 2021-09-16 14:54 | NUR ---
PLAM OF CARE: PLAN FOR THIS PT TO POSSIBLY D/C TOMORROW. PT MAY BENEIFT FROM AT D/C. CM WILL REMAIN AVAILABLE TO ASSIST AND FOLLOW NEEDED.
[2021-09-16 15:56] VITALS: BP 110/51
--- NOTE | 2021-09-16 18:48 | NUR ---
PT A&OX4 AND ON 2L NC. PT ABLE TO VOICE NEEDS DURING HOURLY ROUNDING. PT RESTING COMFORTABLY AND CALL [place]SON WITHIN REACH.
[2021-09-16 20:13] VITALS: BP 154/59
[2021-09-17 01:02] VITALS: BP 151/73
[2021-09-17 04:00] VITALS: BP 128/46
[2021-09-17 08:00] VITALS: BP 138/59
--- NOTE | 2021-09-17 13:07 | NUR ---
PLAN FOR THE PT TO D/C HOME WITH HH TODAY. HOWEVER PT DECLINED HH DESPITE EDUCATION AND ENCOURAGEMENT. PHYSICIAN AND RN INFORMED. NO OTHER CM NEEDS ANTICIPATED. CM WILL REMAIN AVAILABLE TO ASSIST AND FOLLOW NEEDED.
[2021-09-17] MEDS ORDERED: PREDNISONE 20 M20 MG PO (14:01)
[2021-09-17] MEDS ORDERED: CEFDINIR300 MG PO (14:01)
[2021-09-17 14:48] VITALS: BP 138/59
--- NOTE | 2021-09-17 15:01 | NUR ---
WENT OVER D/C INSTRUCTIONS WITH PT. PT VERBALIZED UNDERSTANDING. ANSWERED ALL QUESTIONS. IV AND TELE REMOVD.
--- NOTE | 2021-09-17 15:53 | NUR ---
PT TELE MONITOR AND IV REMOVED SUCCESSFULLY. PT GIVEN ALL DISCHARGE INSTRUCTIONS AND VERBALIZES UNDERSTANDING. PT CONFIRMED SHE HAS ALL BELONGINGS THAT SHE ADMITTED WITH. PT DISCHARGED OFF UNIT AT 1555.
== END 2021-09-17 15:56 | disposition home or self-care (01) | DRG 177 ==
LOC: M.ERS 16:21 → M.TBA-ER 20:48 → M.2W 09-15 22:10
PROVIDERS: Internal Medicine; Nurse Practitioner Family; ADMIT Internal Medicine; ATTEND Internal Medicine
PROC: 5A09357 Assistance with Respiratory Ventilation, Less than 24 Consecutive Hours, Continuous Positive Airway Pressure (ICD-10-PCS; principal; 2021-09-15)
DX: J15.6 Pneumonia due to other Gram-negative bacteria (principal); J96.21 Acute and chronic respiratory failure with hypoxia; D68.69 Other thrombophilia; J43.9 Emphysema, unspecified; G47.33 Obstructive sleep apnea (adult) (pediatric); Z20.822 Contact with and (suspected) exposure to COVID-19; I48.0 Paroxysmal atrial fibrillation; Z85.3 Personal history of malignant neoplasm of breast; Z90.13 Acquired absence of bilateral breasts and nipples; Z85.89 Personal history of malignant neoplasm of other organs and systems; Z88.0 Allergy status to penicillin; Z88.1 Allergy status to other antibiotic agents; Z91.041 Radiographic dye allergy status; Z87.891 Personal history of nicotine dependence; Z79.899 Other long term (current) drug therapy